=== PATIENT | female | born 1970 | race Caucasian/White ===

== ENCOUNTER 2020-01-24 10:51 | Outpatient (CLI) | payer OTHER ==
--- NOTE | 2020-01-24 14:43 | MMO ---
Bilateral MAMMO Bilat Screen [facility]. CLINICAL HISTORY: Patient is 49 years old and is seen for screening. The patient has the following family history of breast cancer: maternal aunt, malignant (generic). The patient has no personal history of cancer. VIEWS: The views performed were: bilateral craniocaudal with tomosynthesis and bilateral mediolateral oblique with tomosynthesis. This study has been interpreted with the assistance of computer-aided detection. MAMMOGRAM FINDINGS: There are scattered fibroglandular densities. Benign calcifications are noted bilaterally. There are no suspicious masses, suspicious calcifications, or new areas of architectural distortion. IMPRESSION: THERE IS NO MAMMOGRAPHIC EVIDENCE OF MALIGNANCY. A ROUTINE FOLLOW-UP MAMMOGRAM IN 1 YEAR IS RECOMMENDED. THE RESULTS OF THIS EXAM WERE SENT TO THE PATIENT. ACR BI-RADS Category 2 - Benign finding MAMMOGRAPHY NOTE: 1. A negative mammogram report should not delay a biopsy if a dominant of clinically suspicious mass is present. 2. Approximately 10% to 15% of breast cancers are not detected by mammography. 3. Adenosis and dense breasts may obscure an underlying neoplasm. Reported by: AIDE PETIT MD Electonically Signed: [id number]
== END 2020-01-24 10:52 | disposition home or self-care (01) ==
LOC: BICMAMMO 10:51
PROVIDERS: ATTEND Family Medicine
DX: Z12.31 Encounter for screening mammogram for malignant neoplasm of breast (principal); Z80.3 Family history of malignant neoplasm of breast
CPT/HCPCS: 77063; 77067

== ENCOUNTER 2021-02-11 21:01 | Inpatient (IN) | payer OTHER, SELFPAY ==
[2021-02-11] MEDS ORDERED: Cefepime 2 GM VIAL ONE (21:59)
[2021-02-11] MEDS ORDERED: Vancomycin HCl 1.5 GM in Sodium Chloride 0.9% 250 ML 300 ML IVPB SCH (22:00)
[2021-02-11 22:11] LABS: ALT (SGPT) 63 U/L (8-55); AST (SGOT) 200 U/L (5-34); Acetaminophen Less than 6.0 mcg/mL (10.0-30.0); Albumin 3.1 g/dL (3.5-5.0); Alcohol Less than 10 mg/dL (Less than 10); Alkaline Phosphatase 54 U/L (40-110); Anion Gap 21 mmol/L (10-20); BUN (Urea Nitrogen) 45 mg/dL (7.0-18.7); Bilirubin, Total 0.8 mg/dL (0.2-1.2); Calc. Creatinine Clearance 0 mL/min (70-130); Calcium 8.9 mg/dL (7.8-10.44); Carbon Dioxide 13 mmol/L (22-29); Chloride 108 mmol/L (98-107); Globulin 3.8 g/dL (2.4-3.5); Glucose 120 mg/dL (70-105); Potassium 4.1 mmol/L (3.5-5.1); Protein, Total 6.9 g/dL (6.0-8.3); Salicylate Less than 8.0 mg/dL (15.0-30.0); Sodium 138 mmol/L (136-145)
[2021-02-11 22:32] LABS: Analyzer IN Cardio ER; Base Excess -12.1 mEq/L (-2.0 to +3.0); Calcium, Ionized (venous) 1.11 mmol/L (1.16-1.32); Chloride (VBG) 109 mmol/L (98-106); Hemoglobin (Hb) 9.5 g/dL (11.7-16.0); Sodium 137.2 mmol/L (133-146); pH (venous) 7.26 (7.32-7.43)
[2021-02-11 22:35] LABS: CKMB 69.6 ng/mL (0-6.6)
[2021-02-11 22:40] LABS: #Basophils 0.1 thou/uL (0.0-0.2); #Eosinphils 0.3 thou/uL (0.0-0.7); #Lymphocytes 1.6 thou/uL (1.20-3.40); #Monocytes 0.7 thou/uL (0.11-0.59); #Neutrophils 3.7 thou/uL (1.40-6.50); %Basophils 1.1 % (0.0-1.0); %Lymphocytes 25.1 % (21.0-51.0); %Monocytes 10.3 % (0.0-10.0); %Neutrophils 58.5 % (42.0-75.0); Hemoglobin 8.8 g/dL (12.0-16.0); Mean Corpuscular HGB CONC 31.8 g/dL (32.0-36.0); Mean Corpuscular Hemoglobin 29.7 pg (27.0-31.0); Mean Corpuscular Volume 93.4 fL (78.0-98.0); Mean Platelet Volume 8.3 fL (7.4-10.4); Platelet Count 109 thou/uL (130-400); RBC Distribution Width 16.2 % (11.5-14.5); Red Blood Cell (RBC) Count 2.98 mill/uL (4.20-5.40); White Blood Cell (WBC) Count 6.3 thou/uL (4.8-10.8)
[2021-02-11 22:43] LABS: Actual Bicarbonate (HCO3v) 14 mEq/L (22-28)
[2021-02-12 00:51] LABS: Bacteria/HPF 2+ HPF (None Seen); Bilirubin Negative (Negative); Blood, Urine 2+ (Negative); Clarity Clear (Clear); Glucose, Urine (Dipstick) Normal (Negative); Ketone, Urine Negative (Negative); Leukocyte Negative Leu/uL (Negative); Nitrite Negative (Negative); Pregnancy Test - Urine (BHCG) Negative (Negative); Pregu Control Background? CLEAR/WHITE (CLR/WHITE); Pregu Control Bar Appear? YES (CONTROL BAR); Protein, Urine (Dipstick) Negative (Neg-Trace); RBC/HPF 0-3 HPF (0-3); Specific Gravity 1.007 (1.002-1.036); Specific Gravity, Urine 1.007 (1.002-1.036); Squamous Epithelial 0-3 HPF (0-3); Urobilinogen Normal mg/dL (Less than 2); WBC/HPF 0-3 HPF (0-3)
[2021-02-12 00:59] LABS: Amphetamine Detected (NotDetected); Barbiturates Screen Not Detected (NotDetected); Benzodiazepine Screen Not Detected (NotDetected); Cocaine Metabolite Screen Not Detected (NotDetected); Methadone Not Detected (NotDetected); Methamphetamine Detected (NotDetected); Opiate Screen Not Detected (NotDetected); Oxycodone Screen Not Detected (NotDetected); Phencyclidine (PCP) Not Detected (NotDetected); THC/Cannabinoid Screen Not Detected (NotDetected); Tricyclic Screen Not Detected (NotDetected)
[2021-02-12] MEDS ORDERED: Ondansetron PF 4 MG/2 ML Vial IVP PRN (01:23)
[2021-02-12 01:51] LABS: Analyzer IN Cardio ER; Base Excess -11.7 mEq/L (-2.0 to +3.0); Calcium, Ionized (venous) 1.02 mmol/L (1.16-1.32); Chloride (VBG) 108 mmol/L (98-106); Hemoglobin (Hb) 9.6 g/dL (11.7-16.0); Potassium (VBG) 4.89 mmol/L (3.70-5.30); Sodium 135.4 mmol/L (133-146); pH (venous) 7.32 (7.32-7.43)
[2021-02-12 01:56] LABS: Actual Bicarbonate (HCO3v) 13 mEq/L (22-28)
[2021-02-12] MEDS ORDERED: Dextrose 5% in Water 1,000 ML IV PRN (02:18)
[2021-02-12] MEDS ORDERED: Dextrose 50% Abboject 50 ML SYRINGE SLOW IVP PRN (02:18)
[2021-02-12] MEDS ORDERED: HumaLOG 300 UNITS/3 ML VIAL SC PRN (02:18)
[2021-02-12 02:23] LABS: Lactic Acid 2.4 mmol/L (0.5-2.2)
[2021-02-12 02:30] LABS: Troponin I 0.025 ng/mL (< 0.028)
[2021-02-12] MEDS: Sodium Bicarbonate 150 MEQ in Dextrose 5% in Water 1,000 ML IV SCH ×4 (03:49→20:16)
[2021-02-12 03:51] LABS: Magnesium 2.4 mg/dL (1.6-2.6)
[2021-02-12 04:05] VITALS: BMI 31.6
[2021-02-12 04:43] LABS: Band 1 % (5-11); Hemoglobin 9.4 g/dL (12.0-16.0); Hypochromia SLIGHT = 6-15 cells (100X) (0-5/hpf); Lymphocytes 20 % (21-51); MDiff Complete? YES; Mean Corpuscular Hemoglobin 31.3 pg (27.0-31.0); Mean Platelet Volume 8.7 fL (7.4-10.4); Neutrophil 79 % (42-75); Platelet Count 92 thou/uL (130-400); Platelet Morphology Comment Appears Decreased; RBC Distribution Width 16.2 % (11.5-14.5); Red Blood Cell (RBC) Count 3.01 mill/uL (4.20-5.40); White Blood Cell (WBC) Count 7.2 thou/uL (4.8-10.8)
[2021-02-12 04:49] LABS: ALT (SGPT) 64 U/L (8-55); AST (SGOT) 192 U/L (5-34); Alkaline Phosphatase 54 U/L (40-110); Anion Gap 20 mmol/L (10-20); BUN (Urea Nitrogen) 47 mg/dL (7.0-18.7); Bilirubin, Total 0.8 mg/dL (0.2-1.2); Calc. Creatinine Clearance 22 mL/min (70-130); Calcium 8.7 mg/dL (7.8-10.44); Carbon Dioxide 14 mmol/L (22-29); Chloride 108 mmol/L (98-107); Globulin 3.8 g/dL (2.4-3.5); Glucose 155 mg/dL (70-105); Magnesium 2.1 mg/dL (1.6-2.6); Potassium 4.3 mmol/L (3.5-5.1); Protein, Total 6.8 g/dL (6.0-8.3); Sodium 138 mmol/L (136-145)
[2021-02-12 04:59] LABS: Troponin I 0.029 ng/mL (< 0.028)
[2021-02-12] MEDS ORDERED: Midodrine HCl 5 MG TAB PO SCH (05:15)
[2021-02-12] MEDS: HumaLOG 300 UNITS/3 ML VIAL SC PRN ×2 (06:04→11:52)
[2021-02-12] MEDS: Rifaximin 550 MG TAB PO SCH ×2 (08:29→20:18)
[2021-02-12 11:29] LABS: Anion Gap 21 mmol/L (10-20); BUN (Urea Nitrogen) 46 mg/dL (7.0-18.7); Calc. Creatinine Clearance 22 mL/min (70-130); Calcium 8.2 mg/dL (7.8-10.44); Carbon Dioxide 15 mmol/L (22-29); Chloride 106 mmol/L (98-107); Glucose 230 mg/dL (70-105); Potassium 4.5 mmol/L (3.5-5.1); Sodium 137 mmol/L (136-145)
[2021-02-12 14:17] LABS: SARS-CoV-2 PCR by NAA Not Detected (NotDetected)
[2021-02-12] MEDS: Midodrine HCl 5 MG TAB PO SCH ×2 (14:19→20:19)
[2021-02-12] MEDS: Albumin 25% 25 GM/100 ML BOT IVPB SCH ×2 (16:01→21:45)
[2021-02-12] MEDS ORDERED: Nicotine 21 MG PATCH TD SCH (20:00)
[2021-02-12] MEDS: Acetaminophen 325 MG TAB PO PRN (20:17)
[2021-02-12 21:01] LABS: Creatinine, Urine 59.57 mg/dL (47-110)
[2021-02-13 04:29] LABS: CK (CPK) 1301 U/L (29-168); Phosphorus 4.9 mg/dL (2.3-4.7)
[2021-02-13 04:30] LABS: ALT (SGPT) 60 U/L (8-55); AST (SGOT) 129 U/L (5-34); Albumin 3.2 g/dL (3.5-5.0); Alkaline Phosphatase 49 U/L (40-110); Anion Gap 16 mmol/L (10-20); BUN (Urea Nitrogen) 40 mg/dL (7.0-18.7); Calc. Creatinine Clearance 30 mL/min (70-130); Calcium 8.4 mg/dL (7.8-10.44); Carbon Dioxide 22 mmol/L (22-29); Chloride 101 mmol/L (98-107); Globulin 3.2 g/dL (2.4-3.5); Glucose 134 mg/dL (70-105); Magnesium 2.1 mg/dL (1.6-2.6); Potassium 3.3 mmol/L (3.5-5.1); Protein, Total 6.4 g/dL (6.0-8.3); Sodium 136 mmol/L (136-145)
[2021-02-13 04:42] LABS: Anisocytosis SLIGHT = 6-15 cells (100X) (0-5/hpf); Band 11 % (5-11); Eosinophils 7 % (0-10); Hemoglobin 8.6 g/dL (12.0-16.0); Lymphocytes 16 % (21-51); MDiff Complete? YES; Mean Corpuscular HGB CONC 33.8 g/dL (32.0-36.0); Mean Corpuscular Hemoglobin 31.2 pg (27.0-31.0); Mean Corpuscular Volume 92.2 fL (78.0-98.0); Mean Platelet Volume 8.5 fL (7.4-10.4); Monocytes 4 % (0-10); Neutrophil 62 % (42-75); Platelet Count 82 thou/uL (130-400); Platelet Morphology Comment Appears Decreased; RBC Distribution Width 16.1 % (11.5-14.5); Red Blood Cell (RBC) Count 2.77 mill/uL (4.20-5.40); White Blood Cell (WBC) Count 4.7 thou/uL (4.8-10.8)
[2021-02-13] MEDS: Acetaminophen 325 MG TAB PO PRN ×2 (05:51→23:10)
[2021-02-13] MEDS ORDERED: Potassium Chloride 20 MEQ TAB PO SCH (08:30)
[2021-02-13] MEDS: Albumin 25% 25 GM/100 ML BOT IVPB SCH ×2 (09:20→14:52)
[2021-02-13] MEDS: Rifaximin 550 MG TAB PO SCH ×2 (09:20→23:05)
[2021-02-13] MEDS: Midodrine HCl 5 MG TAB PO SCH ×3 (09:20→23:05)
[2021-02-13] MEDS: HumaLOG 300 UNITS/3 ML VIAL SC PRN (17:05)
[2021-02-13] MEDS: Sodium Bicarbonate 150 MEQ in Dextrose 5% in Water 1,000 ML IV SCH (17:22)
[2021-02-13] MEDS ORDERED: Gabapentin 300 MG CAP PO SCH (23:00)
[2021-02-13] MEDS: Nicotine 21 MG PATCH TD SCH (23:02)
[2021-02-14 04:54] LABS: Hemoglobin 7.9 g/dL (12.0-16.0); Mean Corpuscular HGB CONC 32.5 g/dL (32.0-36.0); Mean Corpuscular Hemoglobin 30.5 pg (27.0-31.0); Mean Corpuscular Volume 93.7 fL (78.0-98.0); Mean Platelet Volume 8.9 fL (7.4-10.4); Platelet Count 80 thou/uL (130-400); RBC Distribution Width 16.4 % (11.5-14.5); Red Blood Cell (RBC) Count 2.59 mill/uL (4.20-5.40)
[2021-02-14 05:04] LABS: ALT (SGPT) 53 U/L (8-55); AST (SGOT) 88 U/L (5-34); Albumin 3.3 g/dL (3.5-5.0); Alkaline Phosphatase 49 U/L (40-110); Anion Gap 14 mmol/L (10-20); BUN (Urea Nitrogen) 26 mg/dL (7.0-18.7); Bilirubin, Total 0.9 mg/dL (0.2-1.2); Calc. Creatinine Clearance 64 mL/min (70-130); Calcium 8.5 mg/dL (7.8-10.44); Carbon Dioxide 25 mmol/L (22-29); Chloride 99 mmol/L (98-107); Globulin 3.1 g/dL (2.4-3.5); Glucose 240 mg/dL (70-105); Magnesium 2.1 mg/dL (1.6-2.6); Potassium 3.8 mmol/L (3.5-5.1); Protein, Total 6.4 g/dL (6.0-8.3); Sodium 134 mmol/L (136-145)
[2021-02-14 05:39] LABS: Band 2 % (5-11); Eosinophils 4 % (0-10); Lymphocytes 18 % (21-51); MDiff Complete? YES; Monocytes 12 % (0-10); Neutrophil 64 % (42-75); Platelet Morphology Comment Appears Decreased
[2021-02-14] MEDS: HumaLOG 300 UNITS/3 ML VIAL SC PRN ×3 (06:08→17:15)
[2021-02-14] MEDS ORDERED: Nicotine 21 MG PATCH TD SCH (09:00)
[2021-02-14] MEDS: Spironolactone 25 MG TAB PO SCH (09:08)
[2021-02-14] MEDS: Ferrous Sulfate 325 MG TAB PO SCH (09:08)
[2021-02-14] MEDS: Midodrine HCl 5 MG TAB PO SCH ×3 (09:09→21:13)
[2021-02-14] MEDS: Rifaximin 550 MG TAB PO SCH ×2 (09:09→21:13)
[2021-02-14] MEDS: Gabapentin 300 MG CAP PO SCH ×2 (09:10→21:13)
[2021-02-14] MEDS: Nadolol 40 MG TAB PO SCH (14:07)
[2021-02-14] MEDS: Acetaminophen 325 MG TAB PO PRN (21:22)
[2021-02-14] MEDS: Nicotine 21 MG PATCH TD SCH (23:51)
[2021-02-15] MEDS: Acetaminophen 325 MG TAB PO PRN ×2 (07:04→22:21)
[2021-02-15] MEDS: HumaLOG 300 UNITS/3 ML VIAL SC PRN ×3 (07:05→17:36)
[2021-02-15] MEDS: Rifaximin 550 MG TAB PO SCH ×2 (09:35→22:24)
[2021-02-15] MEDS: Spironolactone 25 MG TAB PO SCH (09:35)
[2021-02-15] MEDS: Gabapentin 300 MG CAP PO SCH ×2 (09:36→22:23)
[2021-02-15] MEDS: Ferrous Sulfate 325 MG TAB PO SCH (09:36)
[2021-02-15] MEDS: Empagliflozin 25 MG TAB PO SCH (09:41)
[2021-02-15] MEDS ORDERED: Nicotine 21 MG PATCH TD SCH (09:45)
[2021-02-15] MEDS ORDERED: HumuLIN 70/30 (300 UNITS/3 ML VIAL) SC SCH ×2 (11:30→18:00)
[2021-02-15 12:53] LABS: ALT (SGPT) 49 U/L (8-55); AST (SGOT) 66 U/L (5-34); Albumin 3.3 g/dL (3.5-5.0); Alkaline Phosphatase 55 U/L (40-110); Anion Gap 9 mmol/L (10-20); BUN (Urea Nitrogen) 21 mg/dL (7.0-18.7); Bilirubin, Total 0.8 mg/dL (0.2-1.2); Calc. Creatinine Clearance 87 mL/min (70-130); Calcium 8.8 mg/dL (7.8-10.44); Carbon Dioxide 27 mmol/L (22-29); Chloride 100 mmol/L (98-107); Globulin 3.2 g/dL (2.4-3.5); Glucose 291 mg/dL (70-105); Protein, Total 6.5 g/dL (6.0-8.3); Sodium 132 mmol/L (136-145)
[2021-02-15 13:08] LABS: #Eosinphils 0.3 thou/uL (0.0-0.7); #Monocytes 0.5 thou/uL (0.11-0.59); %Basophils 0.4 % (0.0-1.0); %Eosinophils 6.8 % (0.0-10.0); %Monocytes 10.7 % (0.0-10.0); %Neutrophils 61.1 % (42.0-75.0); Hemoglobin 7.9 g/dL (12.0-16.0); Mean Corpuscular HGB CONC 32.2 g/dL (32.0-36.0); Mean Corpuscular Hemoglobin 30.5 pg (27.0-31.0); Mean Corpuscular Volume 94.9 fL (78.0-98.0); Mean Platelet Volume 8.4 fL (7.4-10.4); Platelet Count 92 thou/uL (130-400); RBC Distribution Width 16.1 % (11.5-14.5); Red Blood Cell (RBC) Count 2.59 mill/uL (4.20-5.40); White Blood Cell (WBC) Count 4.9 thou/uL (4.8-10.8)
[2021-02-15] MEDS ORDERED: Torsemide 10 MG TAB PO SCH (18:30)
[2021-02-15] MEDS: Nicotine 21 MG PATCH TD SCH (22:24)
[2021-02-15] MEDS: Sodium Bicarbonate 150 MEQ in Dextrose 5% in Water 1,000 ML IV SCH (23:58)
[2021-02-16] MEDS: HumaLOG 300 UNITS/3 ML VIAL SC PRN ×2 (05:48→12:13)
[2021-02-16] MEDS ORDERED: Loratadine 10 MG TAB PO PRN (09:09)
[2021-02-16] MEDS ORDERED: Famotidine 20 MG TAB PO SCH (09:15)
[2021-02-16 09:17] LABS: #Eosinphils 0.3 thou/uL (0.0-0.7); #Lymphocytes 1.2 thou/uL (1.20-3.40); #Monocytes 0.5 thou/uL (0.11-0.59); #Neutrophils 2.8 thou/uL (1.40-6.50); %Basophils 0.9 % (0.0-1.0); %Eosinophils 6.9 % (0.0-10.0); %Lymphocytes 24.7 % (21.0-51.0); %Monocytes 10.1 % (0.0-10.0); %Neutrophils 57.4 % (42.0-75.0); Hemoglobin 8.2 g/dL (12.0-16.0); Mean Corpuscular HGB CONC 32.2 g/dL (32.0-36.0); Mean Corpuscular Hemoglobin 30.3 pg (27.0-31.0); Mean Corpuscular Volume 94.3 fL (78.0-98.0); Mean Platelet Volume 8.1 fL (7.4-10.4); Platelet Count 96 thou/uL (130-400); RBC Distribution Width 16.3 % (11.5-14.5); White Blood Cell (WBC) Count 4.9 thou/uL (4.8-10.8)
[2021-02-16] MEDS: Ferrous Sulfate 325 MG TAB PO SCH (09:30)
[2021-02-16] MEDS: Torsemide 10 MG TAB PO SCH (09:30)
[2021-02-16] MEDS: Spironolactone 25 MG TAB PO SCH (09:31)
[2021-02-16] MEDS: Empagliflozin 25 MG TAB PO SCH (09:31)
[2021-02-16] MEDS: Rifaximin 550 MG TAB PO SCH ×2 (09:31→20:06)
[2021-02-16 09:35] LABS: ALT (SGPT) 45 U/L (8-55); AST (SGOT) 63 U/L (5-34); Albumin 3.3 g/dL (3.5-5.0); Alkaline Phosphatase 52 U/L (40-110); Anion Gap 11 mmol/L (10-20); BUN (Urea Nitrogen) 20 mg/dL (7.0-18.7); Bilirubin, Total 0.9 mg/dL (0.2-1.2); Calc. Creatinine Clearance 88 mL/min (70-130); Calcium 9.1 mg/dL (7.8-10.44); Carbon Dioxide 25 mmol/L (22-29); Chloride 102 mmol/L (98-107); Globulin 3.4 g/dL (2.4-3.5); Glucose 209 mg/dL (70-105); Potassium 4.1 mmol/L (3.5-5.1); Protein, Total 6.7 g/dL (6.0-8.3); Sodium 134 mmol/L (136-145)
[2021-02-16] MEDS: Nadolol 40 MG TAB PO SCH (09:43)
[2021-02-16] MEDS: Gabapentin 300 MG CAP PO SCH ×3 (10:00→20:06)
[2021-02-16] MEDS: HumuLIN 70/30 (300 UNITS/3 ML VIAL) SC SCH (17:21)
[2021-02-16] MEDS: Famotidine 20 MG TAB PO SCH (20:06)
[2021-02-16] MEDS: Nicotine 21 MG PATCH TD SCH (22:59)
[2021-02-17 09:02] LABS: ALT (SGPT) 40 U/L (8-55); AST (SGOT) 49 U/L (5-34); Albumin 3.2 g/dL (3.5-5.0); Alkaline Phosphatase 52 U/L (40-110); Anion Gap 12 mmol/L (10-20); BUN (Urea Nitrogen) 23 mg/dL (7.0-18.7); Bilirubin, Total 0.8 mg/dL (0.2-1.2); Calc. Creatinine Clearance 80 mL/min (70-130); Calcium 8.8 mg/dL (7.8-10.44); Carbon Dioxide 24 mmol/L (22-29); Chloride 103 mmol/L (98-107); Globulin 3.2 g/dL (2.4-3.5); Glucose 191 mg/dL (70-105); Potassium 4.2 mmol/L (3.5-5.1); Protein, Total 6.4 g/dL (6.0-8.3); Sodium 135 mmol/L (136-145)
[2021-02-17] MEDS: Gabapentin 300 MG CAP PO SCH ×3 (09:51→20:24)
[2021-02-17] MEDS: Empagliflozin 25 MG TAB PO SCH (09:51)
[2021-02-17] MEDS: Spironolactone 25 MG TAB PO SCH (09:53)
[2021-02-17] MEDS: Ferrous Sulfate 325 MG TAB PO SCH (09:54)
[2021-02-17] MEDS: Rifaximin 550 MG TAB PO SCH ×2 (09:54→20:24)
[2021-02-17] MEDS: Torsemide 10 MG TAB PO SCH (09:54)
[2021-02-17] MEDS: Famotidine 20 MG TAB PO SCH ×2 (09:54→20:24)
[2021-02-17] MEDS: Nadolol 40 MG TAB PO SCH (09:55)
[2021-02-17] MEDS: HumuLIN 70/30 (300 UNITS/3 ML VIAL) SC SCH ×2 (09:55→17:08)
[2021-02-17] MEDS: HumaLOG 300 UNITS/3 ML VIAL SC PRN ×2 (13:05→17:09)
[2021-02-17] MEDS: Nicotine 21 MG PATCH TD SCH (23:45)
[2021-02-18] MEDS: Acetaminophen 325 MG TAB PO PRN ×2 (04:34→12:13)
[2021-02-18] MEDS: HumaLOG 300 UNITS/3 ML VIAL SC PRN ×2 (06:13→12:30)
[2021-02-18] MEDS: Ferrous Sulfate 325 MG TAB PO SCH (07:35)
[2021-02-18] MEDS ORDERED: Spironolactone 25 MG TAB PO SCH (09:15)
[2021-02-18] MEDS: Spironolactone 25 MG TAB PO SCH ×2 (09:55→10:08)
[2021-02-18] MEDS: Rifaximin 550 MG TAB PO SCH (09:55)
[2021-02-18] MEDS: Gabapentin 300 MG CAP PO SCH (09:56)
[2021-02-18] MEDS: Nadolol 40 MG TAB PO SCH (09:57)
[2021-02-18] MEDS: Torsemide 10 MG TAB PO SCH (09:57)
[2021-02-18] MEDS: Empagliflozin 25 MG TAB PO SCH (09:57)
[2021-02-18] MEDS: Famotidine 20 MG TAB PO SCH (09:59)
[2021-02-18] MEDS: HumuLIN 70/30 (300 UNITS/3 ML VIAL) SC SCH (10:01)
[2021-02-18 12:21] VITALS: BP 98/52; TEMP 98.4
[2021-02-18 14:06] LABS: Anion Gap 16 mmol/L (10-20); BUN (Urea Nitrogen) 28 mg/dL (7.0-18.7); Calc. Creatinine Clearance 67 mL/min (70-130); Calcium 9.5 mg/dL (7.8-10.44); Carbon Dioxide 18 mmol/L (22-29); Chloride 103 mmol/L (98-107); Glucose 322 mg/dL (70-105); Potassium 4.7 mmol/L (3.5-5.1); Sodium 132 mmol/L (136-145)
== END 2021-02-18 14:05 | disposition home or self-care (01) | DRG 682 ==
LOC: ERS 21:01 → IMCU/EMU 02-12 00:44 → 2NO 02-13 19:07
PROVIDERS: ADMIT Internal Medicine; ATTEND Hospitalist
DX: N17.9 Acute kidney failure, unspecified (principal); G92 Toxic encephalopathy; R57.8 Other shock; J96.01 Acute respiratory failure with hypoxia; M62.82 Rhabdomyolysis; E87.2 Acidosis; F19.10 Other psychoactive substance abuse, uncomplicated; E11.65 Type 2 diabetes mellitus with hyperglycemia; K74.60 Unspecified cirrhosis of liver; B18.2 Chronic viral hepatitis C; N18.2 Chronic kidney disease, stage 2 (mild); I12.9 Hypertensive chronic kidney disease with stage 1 through stage 4 chronic kidney disease, or unspecified chronic kidney disease; E11.22 Type 2 diabetes mellitus with diabetic chronic kidney disease; D63.1 Anemia in chronic kidney disease; F17.210 Nicotine dependence, cigarettes, uncomplicated; E66.01 Morbid (severe) obesity due to excess calories; Z88.2 Allergy status to sulfonamides; Z88.8 Allergy status to other drugs, medicaments and biological substances; Z79.84 Long term (current) use of oral hypoglycemic drugs; Z68.32 Body mass index [BMI] 32.0-32.9, adult
CPT/HCPCS: 36415; 36416; 70450; 71045; 80048; 80053; 80306; 80307; 81003; 81015; 81025; 82010; 82140; 82550; 82553; 82570; 82805; 83605; 83735; 83930; 84100; 84156; 84300; 84443; 84484; 84540; 85007; 85025; 85027; 87040; 93005; J0692; J1815; J3370; J7050; J7070; P9047; U0003; U0005

== ENCOUNTER 2022-06-15 21:53 | Inpatient (IN) | payer OTHER, SELFPAY ==
[2022-06-15] MEDS ORDERED: Gabapentin 300 MG CAP PO SCH (23:59)
[2022-06-16 00:14] LABS: #Eosinphils 0.2 thou/uL (0.0-0.7); #Lymphocytes 1.8 thou/uL (1.20-3.40); #Monocytes 0.5 thou/uL (0.11-0.59); #Neutrophils 5.9 thou/uL (1.40-6.50); %Basophils 0.4 % (0.0-1.0); %Eosinophils 2.7 % (0.0-10.0); %Lymphocytes 21.4 % (21.0-51.0); %Monocytes 6.2 % (0.0-10.0); %Neutrophils 69.3 % (42.0-75.0); Hemoglobin 11.1 g/dL (12.0-16.0); Mean Corpuscular HGB CONC 34.2 g/dL (32.0-36.0); Mean Corpuscular Hemoglobin 32.1 pg (27.0-31.0); Mean Corpuscular Volume 93.9 fl (78.0-98.0); Mean Platelet Volume 8.9 fL (7.4-10.4); Platelet Count 95 10x3/uL (130-400); RBC Distribution Width 12.8 % (11.5-14.5); Red Blood Cell (RBC) Count 3.46 mill/uL (4.20-5.40); White Blood Cell (WBC) Count 8.5 10x3/uL (4.8-10.8)
[2022-06-16 00:25] LABS: ALT (SGPT) 20 U/L (8-55); AST (SGOT) 24 U/L (5-34); Albumin 3.5 g/dL (3.5-5.0); Alkaline Phosphatase 97 U/L (40-110); Anion Gap 13 mmol/L (10-20); BUN (Urea Nitrogen) 16 mg/dL (9.8-20.1); Bilirubin, Total 0.6 mg/dL (0.2-1.2); Calc. Creatinine Clearance 0 mL/min (70-130); Calcium 9.2 mg/dL (7.8-10.44); Carbon Dioxide 19 mmol/L (22-29); Chloride 108 mmol/L (98-107); Estimated GFR 48; Globulin 3.8 g/dL (2.4-3.5); Glucose 167 mg/dL (70-105); Lipase 40 U/L (8-78); Potassium 4.2 mmol/L (3.5-5.1); Protein, Total 7.3 g/dL (6.0-8.3); Sodium 136 mmol/L (136-145)
[2022-06-16] MEDS ORDERED: HumaLOG 300 UNITS/3 ML VIAL SC PRN (02:24)
[2022-06-16] MEDS ORDERED: Dextrose 50% Abboject 50 ML SYRINGE SLOW IVP PRN (02:24)
[2022-06-16] MEDS ORDERED: hydrALAZINE 20 MG/ML VIAL SLOW IVP PRN (02:24)
[2022-06-16] MEDS ORDERED: Dextrose 5% in Water 1,000 ML IV PRN (02:24)
[2022-06-16] MEDS ORDERED: Acetaminophen 500 MG TAB PO SCH (02:30)
[2022-06-16 03:57] LABS: #Basophils 0.1 thou/uL (0.0-0.2); #Eosinphils 0.2 thou/uL (0.0-0.7); #Monocytes 0.7 thou/uL (0.11-0.59); #Neutrophils 6.4 thou/uL (1.40-6.50); %Basophils 0.9 % (0.0-1.0); %Eosinophils 2.3 % (0.0-10.0); %Lymphocytes 21.4 % (21.0-51.0); %Monocytes 7.4 % (0.0-10.0); Hemoglobin 11.1 g/dL (12.0-16.0); Mean Corpuscular HGB CONC 34.4 g/dL (32.0-36.0); Mean Corpuscular Hemoglobin 32.1 pg (27.0-31.0); Mean Corpuscular Volume 93.2 fl (78.0-98.0); Mean Platelet Volume 8.4 fL (7.4-10.4); Platelet Count 140 10x3/uL (130-400); RBC Distribution Width 12.7 % (11.5-14.5); Red Blood Cell (RBC) Count 3.47 mill/uL (4.20-5.40); White Blood Cell (WBC) Count 9.5 10x3/uL (4.8-10.8)
[2022-06-16 04:23] LABS: Anion Gap 14 mmol/L (10-20); BUN (Urea Nitrogen) 15 mg/dL (9.8-20.1); Calc. Creatinine Clearance 0 mL/min (70-130); Calcium 9.2 mg/dL (7.8-10.44); Carbon Dioxide 19 mmol/L (22-29); Chloride 107 mmol/L (98-107); Estimated GFR 53; Glucose 150 mg/dL (70-105); Potassium 4.2 mmol/L (3.5-5.1); Sodium 136 mmol/L (136-145)
[2022-06-16] MEDS ORDERED: Acetaminophen 500 MG TAB ONE (05:15)
[2022-06-16 06:24] VITALS: TEMP 98
[2022-06-16 07:03] LABS: Troponin I Less than 0.010 ng/mL (< 0.028)
[2022-06-16] MEDS ORDERED: Furosemide 40 MG TAB PO SCH (07:30)
[2022-06-16] MEDS ORDERED: Ferrous Sulfate 325 MG TAB PO SCH (08:00)
[2022-06-16] MEDS ORDERED: Spironolactone 25 MG TAB PO SCH (08:00)
[2022-06-16] MEDS ORDERED: Non-Formulary Item 1 EACH (Multivit With Calcium,Iron,Min [Multiple Vitamins For Women] 1 PO SCH (09:00)
[2022-06-16] MEDS ORDERED: tiZANidine HCl 4 MG TAB PO SCH (09:00)
[2022-06-16] MEDS ORDERED: Multivitamin W/ Minerals 1 TAB PO SCH (09:00)
[2022-06-16] MEDS ORDERED: Amlodipine 10 MG TAB PO SCH (09:00)
[2022-06-16] MEDS ORDERED: Nadolol 40 MG TAB PO SCH (09:00)
[2022-06-16] MEDS ORDERED: Ergocalciferol 1.25 MG(50,000 UNITS) CAP PO SCH (09:00)
[2022-06-16] MEDS ORDERED: Heparin 5,000 UNITS/ML VIAL SC SCH (09:00)
[2022-06-16] MEDS ORDERED: Non-Formulary Item 1 EACH (Dapagliflozin Propanediol [Farxiga] 10 MG Tablet) PO SCH (09:00)
[2022-06-16] MEDS ORDERED: Empagliflozin 25 MG TAB PO SCH (09:00)
[2022-06-16] MEDS ORDERED: Gabapentin 300 MG CAP PO SCH (09:00)
[2022-06-16] MEDS ORDERED: Furosemide 40 MG TAB ONE (09:42)
[2022-06-16 09:54] VITALS: BP 153/60
== END 2022-06-16 10:00 | disposition home or self-care (01) | DRG 305 ==
LOC: ERS 21:53 → ERHOLD 06-16 02:24
PROVIDERS: ADMIT Family Medicine; ATTEND Family Medicine
DX: I16.1 Hypertensive emergency (principal); N17.9 Acute kidney failure, unspecified; I10 Essential (primary) hypertension; K74.60 Unspecified cirrhosis of liver; E11.9 Type 2 diabetes mellitus without complications; K58.9 Irritable bowel syndrome, unspecified; F41.9 Anxiety disorder, unspecified; F31.9 Bipolar disorder, unspecified; F43.10 Post-traumatic stress disorder, unspecified; Z88.1 Allergy status to other antibiotic agents; Z88.2 Allergy status to sulfonamides; Z79.899 Other long term (current) drug therapy; Z91.14 Patient's other noncompliance with medication regimen; Z91.118 Patient's noncompliance with dietary regimen for other reason
CPT/HCPCS: 36415; 36416; 70450; 71045; 80048; 80053; 83690; 83880; 84484; 85025; 93005

== ENCOUNTER 2022-08-23 01:57 | Observation (INO) | payer OTHER, SELFPAY ==
[2022-08-23] MEDS ORDERED: Morphine 4 MG/ML VIAL ONE (02:41)
[2022-08-23] MEDS ORDERED: Midazolam HCl 2 mg/2 ml Vial ONE (02:42)
[2022-08-23] MEDS ORDERED: Bupivacaine/Epinephrine 0.25% 30 ML VIAL ONE (03:28)
[2022-08-23] MEDS ORDERED: traMADol HCl 50 MG TAB PO PRN (03:30)
[2022-08-23 03:40] LABS: Bilirubin Negative (Negative); Blood, Urine 3+ (Negative); Clarity Turbid (Clear); Glucose, Urine (Dipstick) >=1000 mg/dL (Negative); Ketone, Urine Negative (Negative); Leukocyte Negative Leu/uL (Negative); Nitrite Negative (Negative); Protein, Urine (Dipstick) 70 mg/dL (Neg-Trace); RBC/HPF Greater than 50 HPF (0-3); Specific Gravity, Urine 1.018 (1.002-1.036); Squamous Epithelial 0-3 HPF (0-3); Urobilinogen Normal mg/dL (Less than 2); WBC/HPF Greater than 50 HPF (0-3)
[2022-08-23 03:45] LABS: Bacteria/HPF Rare-Few HPF (None Seen)
[2022-08-23] MEDS ORDERED: Fentanyl 250 MCG/5 ML VIAL ONE (03:57)
[2022-08-23] MEDS ORDERED: Phenylephrine 10 MG/ML VIAL ONE (03:57)
[2022-08-23 04:13] LABS: #Basophils 0.1 thou/uL (0.0-0.2); #Eosinphils 0.3 thou/uL (0.0-0.7); #Monocytes 0.7 thou/uL (0.11-0.59); %Basophils 0.5 % (0.0-1.0); %Eosinophils 2.3 % (0.0-10.0); %Lymphocytes 17.9 % (21.0-51.0); %Monocytes 5.9 % (0.0-10.0); %Neutrophils 73.3 % (42.0-75.0); Hemoglobin 10.9 g/dL (12.0-16.0); Mean Corpuscular HGB CONC 33.1 g/dL (32.0-36.0); Mean Corpuscular Hemoglobin 29.9 pg (27.0-31.0); Mean Corpuscular Volume 90.3 fl (78.0-98.0); Platelet Count 173 10x3/uL (130-400); RBC Distribution Width 13.5 % (11.5-14.5); Red Blood Cell (RBC) Count 3.66 mill/uL (4.20-5.40); White Blood Cell (WBC) Count 10.9 10x3/uL (4.8-10.8)
[2022-08-23] MEDS ORDERED: Mannitol 12.5 GM/50 ML ONE (04:18)
[2022-08-23 04:21] LABS: INR-International Normal Ratio 1.1; PTT 26.7 sec (22.9-36.1); Prothrombin Time 14.4 sec (12.0-14.7)
[2022-08-23] MEDS ORDERED: Lidocaine 1% PF 5 ML VIAL ONE (04:23)
[2022-08-23] MEDS ORDERED: Dexamethasone 20 MG/5 ML VIAL ONE (04:23)
[2022-08-23] MEDS ORDERED: PROPOFOL 200 MG/20 ML VIAL ONE (04:23)
[2022-08-23] MEDS ORDERED: Ondansetron PF 4 MG/2 ML Vial ONE (04:23)
[2022-08-23] MEDS ORDERED: Rocuronium Bromide 10 MG/ML (10ML VIAL) ONE (04:23)
[2022-08-23 04:24] LABS: BHCG - Serum Negative (NEGATIVE); Pregs Control Background? CLEAR/WHITE (CLR/WHITE); Pregs Control Bar Appear? YES (CONTROL BAR)
[2022-08-23 04:35] LABS: Anion Gap 14 mmol/L (10-20); BUN (Urea Nitrogen) 16 mg/dL (9.8-20.1); Calc. Creatinine Clearance 0 mL/min (70-130); Calcium 9.2 mg/dL (7.8-10.44); Carbon Dioxide 18 mmol/L (22-29); Chloride 108 mmol/L (98-107); Estimated GFR 57; Glucose 282 mg/dL (70-105); Magnesium 1.5 mg/dL (1.6-2.6); Phosphorus 3.8 mg/dL (2.3-4.7); Potassium 4.6 mmol/L (3.5-5.1); Sodium 135 mmol/L (136-145)
[2022-08-23 04:36] LABS: ALT (SGPT) 26 U/L (8-55); AST (SGOT) 28 U/L (5-34); Albumin 3.3 g/dL (3.5-5.0); Alkaline Phosphatase 88 U/L (40-110); Bilirubin, Direct 0.2 mg/dL (0.1-0.3); Bilirubin, Total 0.6 mg/dL (0.2-1.2); Protein, Total 6.8 g/dL (6.0-8.3)
[2022-08-23] MEDS ORDERED: SUGAMMADEX SODIUM 200 MG/2 ML VIAL ONE (05:19)
[2022-08-23] MEDS ORDERED: Ipratropium/Albuterol 3 ML NEB ONE (05:42)
[2022-08-23] MEDS ORDERED: Acetaminophen 500 MG TAB PO SCH (06:00)
[2022-08-23] MEDS ORDERED: traMADol HCl 50 MG TAB PO SCH (06:00)
[2022-08-23] MEDS ORDERED: Morphine 2 MG/ML VIAL SLOW IVP PRN (06:07)
[2022-08-23] MEDS ORDERED: PACU-Morphine 4MG/ML VIAL SLOW IVP PRN (06:09)
[2022-08-23] MEDS ORDERED: HYDROmorphone 2 MG/ML VIAL SLOW IVP PRN (06:09)
[2022-08-23] MEDS ORDERED: Promethazine HCl 25 MG/ML VIAL IM PRN (06:09)
[2022-08-23] MEDS ORDERED: Ondansetron HCl/PF 4 MG/2 ML Vial IVP PRN (06:09)
[2022-08-23] MEDS ORDERED: TETANUS, DIPHTHERIA TOX,ADULT (TDVAX) 0.5 ML VIAL IM ONE (06:11)
[2022-08-23] MEDS ORDERED: Dextrose 50% Abboject 50 ML SYRINGE SLOW IVP PRN ×2 (06:11→07:40)
[2022-08-23] MEDS ORDERED: Dextrose 5% in Water 1,000 ML IV PRN ×2 (06:11→07:40)
[2022-08-23] MEDS ORDERED: fentaNYL 50 mcg/mL 1 mL Vial ONE (06:13)
[2022-08-23] MEDS ORDERED: HYDROmorphone 0.5 MG/0.5 ML SYRINGE ONE ×3 (06:28→08:57)
[2022-08-23] MEDS ORDERED: Ipratropium/Albuterol 3 ML NEB NEB SCH (06:30)
[2022-08-23] MEDS ORDERED: hydrALAZINE 20 MG/ML VIAL ONE (06:47)
[2022-08-23] MEDS ORDERED: BISACODYL 5 MG PO PRN (07:38)
[2022-08-23] MEDS ORDERED: HumaLOG 300 UNITS/3 ML VIAL ONE (07:46)
[2022-08-23] MEDS ORDERED: Bisacodyl 5 MG TAB PO PRN (08:03)
[2022-08-23] MEDS: Spironolactone 25 MG TAB PO SCH (08:30)
[2022-08-23 09:07] LABS: Pregnancy Test - Urine (BHCG) Negative (Negative); Pregu Control Bar Appear? YES (CONTROL BAR); Specific Gravity 1.018 (1.002-1.036)
[2022-08-23 09:08] LABS: Pregu Control Background? CLEAR/WHITE (CLR/WHITE)
[2022-08-23] MEDS: Lisinopril 20 MG TAB PO SCH (09:22)
[2022-08-23] MEDS: Senokot S 8.6-50 MG TAB PO SCH ×2 (09:26→20:55)
[2022-08-23] MEDS: Nadolol 40 MG TAB PO SCH ×2 (09:26→12:15)
[2022-08-23] MEDS: Polyethylene Glycol 3350 17 GM Packet PO SCH (09:26)
[2022-08-23] MEDS: Acetaminophen/Codeine 30-300mg Tablet PO SCH ×2 (12:08→17:35)
[2022-08-23] MEDS: Clindamycin 150 MG CAP PO SCH ×2 (12:08→17:34)
[2022-08-23] MEDS: HumaLOG 300 UNITS/3 ML VIAL SC PRN ×3 (12:16→21:09)
[2022-08-23] MEDS ORDERED: Ipratropium/Albuterol Sulfate 4 GM AER IH SCH (12:30)
[2022-08-23] MEDS ORDERED: Insulin Regular 300 UNITS/3 ML VIAL SC SCH (13:45)
[2022-08-23] MEDS: Dicyclomine 20 MG TAB PO SCH ×2 (15:37→20:52)
[2022-08-23] MEDS: Acetaminophen/Codeine 30-300mg Tablet PO PRN (16:18)
[2022-08-23] MEDS: Albuterol 200 PUFF (6.7GM INHALER) INH PRN (18:47)
[2022-08-23] MEDS: Ipratropium 200 Puff Oral Inhaler INH SCH (18:48)
[2022-08-23] MEDS: Albuterol HFA (OR) 200 PUFF INH INH SCH (18:50)
[2022-08-23] MEDS: Gabapentin 300 MG CAP PO SCH (20:52)
[2022-08-23] MEDS ORDERED: QUEtiapine 100 MG TAB PO SCH (21:00)
[2022-08-23] MEDS ORDERED: Insulin Glargine 30 UNITS/0.3 ML VIAL SC SCH (21:00)
[2022-08-23] MEDS: Insulin Glargine 30 UNITS/0.3 ML VIAL SC SCH (21:00)
[2022-08-23] MEDS: tiZANidine HCl 4 MG TAB PO SCH (21:08)
[2022-08-24] MEDS: Clindamycin 150 MG CAP PO SCH ×3 (00:13→11:22)
[2022-08-24] MEDS: Acetaminophen/Codeine 30-300mg Tablet PO SCH ×3 (00:14→11:22)
[2022-08-24] MEDS: Acetaminophen/Codeine 30-300mg Tablet PO PRN (00:14)
[2022-08-24] MEDS: HumaLOG 300 UNITS/3 ML VIAL SC PRN ×2 (06:11→11:23)
[2022-08-24] MEDS: Albuterol 200 PUFF (6.7GM INHALER) INH PRN (06:33)
[2022-08-24] MEDS: Ipratropium 200 Puff Oral Inhaler INH SCH ×2 (06:34→12:01)
[2022-08-24] MEDS: Albuterol HFA (OR) 200 PUFF INH INH SCH ×2 (06:35→12:00)
[2022-08-24 06:48] LABS: Hemoglobin 9.9 g/dL (12.0-16.0); Mean Corpuscular HGB CONC 32.6 g/dL (32.0-36.0); Mean Corpuscular Hemoglobin 30.1 pg (27.0-31.0); Mean Corpuscular Volume 92.3 fl (78.0-98.0); Mean Platelet Volume 8.1 fL (7.4-10.4); Platelet Count 151 10x3/uL (130-400); RBC Distribution Width 13.5 % (11.5-14.5); Red Blood Cell (RBC) Count 3.28 mill/uL (4.20-5.40); White Blood Cell (WBC) Count 10.4 10x3/uL (4.8-10.8)
[2022-08-24 06:58] LABS: Anion Gap 9 mmol/L (10-20); BUN (Urea Nitrogen) 19 mg/dL (9.8-20.1); Calc. Creatinine Clearance 80 mL/min (70-130); Calcium 8.3 mg/dL (7.8-10.44); Carbon Dioxide 21 mmol/L (22-29); Chloride 106 mmol/L (98-107); Estimated GFR 49; Glucose 223 mg/dL (70-105); Magnesium 1.5 mg/dL (1.6-2.6); Phosphorus 3.6 mg/dL (2.3-4.7); Sodium 132 mmol/L (136-145)
[2022-08-24] MEDS ORDERED: Magnesium 2 GM/50 ML(in water) 4 GM in Premix Bag 1 BAG IVPB SCH (08:00)
[2022-08-24 08:32] LABS: Eosinophils 3 % (0-10); Lymphocytes 20 % (21-51); MDiff Complete? YES; Monocytes 8 % (0-10); Neutrophil 69 % (42-75); Ovalocytes SLIGHT = 2-5 cells (100X) (0-1/hpf); Platelet Morphology Comment Appears Adequate; Polychromasia SLIGHT = 2-3 cells (100X) (0-2/hpf)
[2022-08-24 08:53] VITALS: TEMP 97.7
[2022-08-24] MEDS: Senokot S 8.6-50 MG TAB PO SCH (08:54)
[2022-08-24] MEDS: Dicyclomine 20 MG TAB PO SCH (08:55)
[2022-08-24] MEDS: Lisinopril 20 MG TAB PO SCH (08:56)
[2022-08-24] MEDS: Gabapentin 300 MG CAP PO SCH (08:56)
[2022-08-24] MEDS: tiZANidine HCl 4 MG TAB PO SCH (08:56)
[2022-08-24] MEDS: Spironolactone 25 MG TAB PO SCH (08:57)
[2022-08-24] MEDS: Insulin Glargine 30 UNITS/0.3 ML VIAL SC SCH (08:57)
[2022-08-24] MEDS: Polyethylene Glycol 3350 17 GM Packet PO SCH (08:58)
[2022-08-24] MEDS: Nadolol 40 MG TAB PO SCH (08:59)
[2022-08-24] MEDS ORDERED: Docusate 100 MG CAP PO SCH (09:00)
[2022-08-24] MEDS ORDERED: Saccharomyces boulardii 250 MG CAP PO SCH (09:00)
[2022-08-24] MEDS ORDERED: Magnesium Sulfate In Water 4 GM in Premix Bag 1 BAG IVPB SCH (09:00)
[2022-08-24 13:20] VITALS: BP 122/73
== END 2022-08-24 13:14 | disposition home or self-care (01) ==
LOC: ERS 01:57 → SDC/OP 04:20 → SURG B 10:41
PROVIDERS: ADMIT Surgery; ATTEND Surgery
PROC: 0WUF0JZ Supplement Abdominal Wall with Synthetic Substitute, Open Approach (ICD-10-PCS; principal; 2022-08-23)
DX: K42.0 Umbilical hernia with obstruction, without gangrene (principal); I12.9 Hypertensive chronic kidney disease with stage 1 through stage 4 chronic kidney disease, or unspecified chronic kidney disease; E10.22 Type 1 diabetes mellitus with diabetic chronic kidney disease; N18.9 Chronic kidney disease, unspecified; E10.40 Type 1 diabetes mellitus with diabetic neuropathy, unspecified; F10.21 Alcohol dependence, in remission; F15.11 Other stimulant abuse, in remission; K74.60 Unspecified cirrhosis of liver; K58.9 Irritable bowel syndrome, unspecified; J45.909 Unspecified asthma, uncomplicated; E66.01 Morbid (severe) obesity due to excess calories; Z68.38 Body mass index [BMI] 38.0-38.9, adult; Z87.891 Personal history of nicotine dependence; Z79.84 Long term (current) use of oral hypoglycemic drugs; Z79.899 Other long term (current) drug therapy; Z88.1 Allergy status to other antibiotic agents; Z88.2 Allergy status to sulfonamides
CPT/HCPCS: 36415; 36416; 80048; 80076; 81003; 81015; 81025; 83735; 84100; 84703; 85025; 85610; 85730; 86850; 86900; 86901; 88302; 96365; 96366; 96372; 96374; 96375; C1781; G0378; J0360; J1100; J1170; J1650; J1815; J2150; J2250; J2270; J2370; J2405; J2704; J3010; J3475; J7620

== ENCOUNTER 2022-12-30 14:03 | Outpatient (CLI) | payer OTHER ==
[~2022-12-30 14:03] MED LIST: Iopamidol 370 76% 100 ML VIAL ONE
== END 2022-12-30 14:04 | disposition home or self-care (01) ==
LOC: BICCT 14:03
PROVIDERS: ATTEND Otolaryngology Plastic Surgery within the Head & Neck
DX: J37.1 Chronic laryngotracheitis (principal); R49.0 Dysphonia; E04.2 Nontoxic multinodular goiter
CPT/HCPCS: 70491; 82565

== ENCOUNTER 2023-01-24 13:21 | Inpatient (IN) | payer OTHER ==
[2023-01-24 16:21] VITALS: BMI 44.1
[2023-01-24] MEDS: Sodium Chloride 0.9% 1,000 ML IV SCH ×2 (16:29→22:13)
[2023-01-24 16:54] LABS: Magnesium 2.1 mg/dL (1.6-2.6)
[2023-01-24 16:57] LABS: Anion Gap 13 mmol/L (10-20); BUN (Urea Nitrogen) 33 mg/dL (9.8-20.1); Calc. Creatinine Clearance 67 mL/min (70-130); Calcium 8.8 mg/dL (7.8-10.44); Carbon Dioxide 17 mmol/L (22-29); Chloride 111 mmol/L (98-107); Estimated GFR 33; Glucose 130 mg/dL (70-105); Potassium 5.4 mmol/L (3.5-5.1); Sodium 136 mmol/L (136-145)
[2023-01-24 16:59] LABS: Troponin I Less than 0.010 ng/mL (< 0.028)
[2023-01-24] MEDS ORDERED: Dextrose 5% in Water 1,000 ML IV PRN (17:01)
[2023-01-24] MEDS ORDERED: Insulin Regular 300 UNITS/3 ML VIAL SC PRN (17:01)
[2023-01-24] MEDS ORDERED: Dextrose 50% Abboject 50 ML SYRINGE SLOW IVP PRN (17:01)
[2023-01-24] MEDS ORDERED: Glucagon 1 MG/ML KIT IM PRN (17:01)
[2023-01-24] MEDS ORDERED: Nitroglycerin 0.4 MG TAB (25 Tab Bottle) SL PRN (17:03)
[2023-01-24] MEDS ORDERED: Ondansetron ODT 4 MG TAB PO PRN (17:05)
[2023-01-24] MEDS ORDERED: Ondansetron PF 4 MG/2 ML Vial IVP PRN (17:05)
[2023-01-24] MEDS ORDERED: Calcium Carbonate 500 MG ChewTAB PO PRN (17:05)
[2023-01-24] MEDS ORDERED: Acetaminophen 325 MG TAB PO PRN (17:05)
[2023-01-24] MEDS ORDERED: hydrALAZINE 20 MG/ML VIAL SLOW IVP PRN (17:22)
[2023-01-24] MEDS: tiZANidine HCl 4 MG TAB PO PRN (19:52)
[2023-01-24] MEDS: Senokot S 8.6-50 MG TAB PO SCH (19:52)
[2023-01-24] MEDS: Aripiprazole 15 MG TAB PO SCH (19:53)
[2023-01-24] MEDS: Prazosin HCl 1 MG CAP PO SCH (19:53)
[2023-01-24] MEDS: Sodium Bicarbonate Tab 325 MG TAB PO SCH (19:53)
[2023-01-24] MEDS: Dicyclomine 20 MG TAB PO SCH (19:53)
[2023-01-24] MEDS: Nadolol 40 MG TAB PO SCH (19:54)
[2023-01-24] MEDS: Gabapentin 300 MG CAP PO SCH (19:55)
[2023-01-24] MEDS: Amantadine HCl 100 mg Capsule PO SCH (19:55)
[2023-01-24] MEDS: Latanoprost 0.005% Ophth Soln 2.5 ml Bottle EA EYE SCH (19:55)
[2023-01-24 21:10] LABS: Troponin I Less than 0.010 ng/mL (< 0.028)
[2023-01-24 21:35] LABS: Bilirubin Negative (Negative); Blood, Urine Negative (Negative); Clarity Clear (Clear); Glucose, Urine (Dipstick) 50 mg/dL (Negative); Ketone, Urine Negative (Negative); Leukocyte Negative Leu/uL (Negative); Nitrite Negative (Negative); Protein, Urine (Dipstick) 70 mg/dL (Neg-Trace); RBC/HPF 0-3 HPF (0-3); Specific Gravity, Urine 1.022 (1.002-1.036); Squamous Epithelial 0-3 HPF (0-3); Urobilinogen Normal mg/dL (Less than 2); WBC/HPF 0-3 HPF (0-3); pH, Urine 5.5 (5.0-9.0)
[2023-01-24 21:45] LABS: Bacteria/HPF 1+ HPF (None Seen)
[2023-01-24] MEDS: Insulin NPH Human Isophane 100 UNITS/ML (10 ML VIAL) SC SCH (22:10)
[2023-01-25] MEDS: Insulin Regular 300 UNITS/3 ML VIAL SC PRN ×2 (00:02→21:18)
[2023-01-25] MEDS: Levothyroxine Sodium 25 MCG TAB PO SCH (05:40)
[2023-01-25] MEDS ORDERED: glipiZIDE 10 MG TAB PO SCH (07:30)
[2023-01-25] MEDS: Gabapentin 300 MG CAP PO SCH ×2 (07:39→16:42)
[2023-01-25] MEDS: Sodium Bicarbonate Tab 325 MG TAB PO SCH ×4 (07:40→21:12)
[2023-01-25] MEDS: Multivitamin W/ Minerals 1 TAB PO SCH (07:40)
[2023-01-25] MEDS: Dicyclomine 20 MG TAB PO SCH ×3 (07:40→21:13)
[2023-01-25] MEDS: Senokot S 8.6-50 MG TAB PO SCH ×2 (07:40→21:16)
[2023-01-25] MEDS: tiZANidine HCl 4 MG TAB PO PRN ×3 (07:40→21:13)
[2023-01-25] MEDS: hydrOXYzine 25 MG TAB PO SCH (07:41)
[2023-01-25] MEDS: Loratadine 10 MG TAB PO SCH (07:41)
[2023-01-25] MEDS: Aspirin Chewable 81 MG TAB PO SCH (07:41)
[2023-01-25] MEDS: Amantadine HCl 100 mg Capsule PO SCH ×2 (07:41→21:12)
[2023-01-25] MEDS: Montelukast Sodium 10 mg Tablet PO SCH (07:41)
[2023-01-25] MEDS: Insulin NPH Human Isophane 100 UNITS/ML (10 ML VIAL) SC SCH ×2 (07:41→21:16)
[2023-01-25 08:35] LABS: Anion Gap 12 mmol/L (10-20); BUN (Urea Nitrogen) 39 mg/dL (9.8-20.1); Calc. Creatinine Clearance 63 mL/min (70-130); Calcium 7.8 mg/dL (7.8-10.44); Carbon Dioxide 15 mmol/L (22-29); Chloride 114 mmol/L (98-107); Estimated GFR 31; Glucose 246 mg/dL (70-105); Potassium 5.6 mmol/L (3.5-5.1); Sodium 135 mmol/L (136-145)
[2023-01-25] MEDS ORDERED: Loratadine 10 MG TAB PO SCH (09:00)
[2023-01-25] MEDS ORDERED: LOKELMA 10 GM PACKET PO SCH (14:00)
[2023-01-25] MEDS ORDERED: Regadenoson 0.4 MG/5 ML SYRINGE ONE (14:09)
[2023-01-25 14:51] LABS: Amphetamine Not Detected (NotDetected); Barbiturates Screen Not Detected (NotDetected); Benzodiazepine Screen Detected (NotDetected); Cocaine Metabolite Screen Not Detected (NotDetected); Methadone Not Detected (NotDetected); Methamphetamine Not Detected (NotDetected); Opiate Screen Detected (NotDetected); Oxycodone Screen Not Detected (NotDetected); Phencyclidine (PCP) Not Detected (NotDetected); THC/Cannabinoid Screen Not Detected (NotDetected); Tricyclic Screen Not Detected (NotDetected)
[2023-01-25 15:14] LABS: Creatinine, Urine 131.25 mg/dL (47-110)
[2023-01-25 15:23] LABS: #Eosinphils 0.1 thou/uL (0.0-0.7); #Monocytes 0.3 thou/uL (0.11-0.59); #Neutrophils 4.2 thou/uL (1.40-6.50); %Basophils 0.5 % (0.0-1.0); %Eosinophils 2.4 % (0.0-10.0); %Lymphocytes 20.2 % (21.0-51.0); %Monocytes 5.1 % (0.0-10.0); %Neutrophils 71.6 % (42.0-75.0); Hematocrit 32.7 % (36.0-47.0); Hemoglobin 10.2 g/dL (12.0-16.0); Mean Corpuscular HGB CONC 31.2 g/dL (32.0-36.0); Mean Corpuscular Hemoglobin 28.7 pg (27.0-31.0); Mean Corpuscular Volume 92.1 fl (78.0-98.0); Mean Platelet Volume 11.4 fL (7.4-10.4); RBC Distribution Width 15.6 % (11.5-14.5); Red Blood Cell (RBC) Count 3.55 mill/uL (4.20-5.40); White Blood Cell (WBC) Count 5.9 10x3/uL (4.8-10.8)
[2023-01-25 15:24] LABS: Platelet Count 111 10x3/uL (130-400)
[2023-01-25] MEDS ORDERED: Gabapentin 400 MG CAP PO SCH (15:45)
[2023-01-25] MEDS: Prazosin HCl 1 MG CAP PO SCH (21:12)
[2023-01-25] MEDS: Aripiprazole 15 MG TAB PO SCH (21:12)
[2023-01-25] MEDS: Gabapentin 400 MG CAP PO SCH (21:12)
[2023-01-25] MEDS: Nadolol 40 MG TAB PO SCH (21:13)
[2023-01-25] MEDS: Latanoprost 0.005% Ophth Soln 2.5 ml Bottle EA EYE SCH (21:15)
[2023-01-26] MEDS: Insulin Regular 300 UNITS/3 ML VIAL SC PRN (00:39)
[2023-01-26] MEDS: Levothyroxine Sodium 25 MCG TAB PO SCH (05:13)
[2023-01-26] MEDS: Gabapentin 400 MG CAP PO SCH ×2 (08:19→15:22)
[2023-01-26] MEDS: Multivitamin W/ Minerals 1 TAB PO SCH (08:21)
[2023-01-26] MEDS: Aspirin Chewable 81 MG TAB PO SCH (08:21)
[2023-01-26] MEDS: Montelukast Sodium 10 mg Tablet PO SCH (08:21)
[2023-01-26] MEDS: Dicyclomine 20 MG TAB PO SCH ×2 (08:21→15:22)
[2023-01-26] MEDS: Sodium Bicarbonate Tab 325 MG TAB PO SCH ×2 (08:21→15:21)
[2023-01-26] MEDS: Loratadine 10 MG TAB PO SCH (08:22)
[2023-01-26] MEDS: hydrOXYzine 25 MG TAB PO SCH (08:22)
[2023-01-26] MEDS: Senokot S 8.6-50 MG TAB PO SCH (08:23)
[2023-01-26 09:19] LABS: Albumin 3.4 g/dL (3.5-5.0); Anion Gap 12 mmol/L (10-20); BUN (Urea Nitrogen) 39 mg/dL (9.8-20.1); BUN/Creatinine Ratio 23.64; Calc. Creatinine Clearance 74 mL/min (70-130); Calcium 8.5 mg/dL (7.8-10.44); Carbon Dioxide 17 mmol/L (22-29); Chloride 111 mmol/L (98-107); Estimated GFR 37; Glucose 168 mg/dL (70-105); Phosphorus 3.3 mg/dL (2.3-4.7); Potassium 4.8 mmol/L (3.5-5.1); Sodium 135 mmol/L (136-145)
[2023-01-26] MEDS: Insulin NPH Human Isophane 100 UNITS/ML (10 ML VIAL) SC SCH (09:45)
[2023-01-26] MEDS: Amantadine HCl 100 mg Capsule PO SCH (09:45)
[2023-01-26] MEDS: tiZANidine HCl 4 MG TAB PO PRN ×2 (09:45→17:09)
[2023-01-26 15:21] VITALS: BP 143/68; TEMP 96.4
== END 2023-01-26 17:31 | disposition home or self-care (01) | DRG 683 ==
LOC: 2SW 14:45 → OBSVTOIN 01-25 15:47
PROVIDERS: ADMIT Hospitalist; ATTEND Family Medicine
DX: N17.9 Acute kidney failure, unspecified (principal); E87.20 Acidosis, unspecified; Z68.41 Body mass index [BMI] 40.0-44.9, adult; E87.21 Acute metabolic acidosis; I13.0 Hypertensive heart and chronic kidney disease with heart failure and stage 1 through stage 4 chronic kidney disease, or unspecified chronic kidney disease; I50.30 Unspecified diastolic (congestive) heart failure; M62.82 Rhabdomyolysis; F41.9 Anxiety disorder, unspecified; R07.89 Other chest pain; Z88.2 Allergy status to sulfonamides; Z88.8 Allergy status to other drugs, medicaments and biological substances; Z79.899 Other long term (current) drug therapy; F31.9 Bipolar disorder, unspecified; E11.40 Type 2 diabetes mellitus with diabetic neuropathy, unspecified; Z90.49 Acquired absence of other specified parts of digestive tract; Z98.890 Other specified postprocedural states; F17.210 Nicotine dependence, cigarettes, uncomplicated; E11.22 Type 2 diabetes mellitus with diabetic chronic kidney disease; E66.01 Morbid (severe) obesity due to excess calories; E87.5 Hyperkalemia; N18.30 Chronic kidney disease, stage 3 unspecified; D59.6 Hemoglobinuria due to hemolysis from other external causes; K74.69 Other cirrhosis of liver; G47.30 Sleep apnea, unspecified
CPT/HCPCS: 36415; 36416; 78452; 80048; 80069; 80306; 81001; 82550; 82570; 83735; 84300; 84540; 85025; 93017; 94760; 96374; A9500; G0378; J0360; J1815; J2785; J7050

== ENCOUNTER 2023-01-30 07:39 | Emergency (ER) | payer OTHER ==
[2023-01-30 08:49] LABS: #Eosinphils 0.2 thou/uL (0.0-0.7); #Monocytes 0.5 thou/uL (0.11-0.59); #Neutrophils 4.5 thou/uL (1.40-6.50); %Basophils 0.6 % (0.0-1.0); %Eosinophils 2.5 % (0.0-10.0); %Lymphocytes 20.5 % (21.0-51.0); %Monocytes 7.2 % (0.0-10.0); %Neutrophils 68.9 % (42.0-75.0); Hematocrit 30.9 % (36.0-47.0); Hemoglobin 10.1 g/dL (12.0-16.0); Mean Corpuscular HGB CONC 32.7 g/dL (32.0-36.0); Mean Corpuscular Hemoglobin 28.6 pg (27.0-31.0); Mean Corpuscular Volume 87.5 fl (78.0-98.0); Mean Platelet Volume 10.7 fL (7.4-10.4); Platelet Count 124 10x3/uL (130-400); RBC Distribution Width 15.2 % (11.5-14.5); Red Blood Cell (RBC) Count 3.53 mill/uL (4.20-5.40); White Blood Cell (WBC) Count 6.5 10x3/uL (4.8-10.8)
[2023-01-30 09:13] LABS: ALT (SGPT) 39 U/L (8-55); AST (SGOT) 31 U/L (5-34); Albumin 3.6 g/dL (3.5-5.0); Alkaline Phosphatase 102 U/L (40-110); Anion Gap 14 mmol/L (10-20); BUN (Urea Nitrogen) 38 mg/dL (9.8-20.1); Bilirubin, Total 0.4 mg/dL (0.2-1.2); Calc. Creatinine Clearance 0 mL/min (70-130); Calcium 9.1 mg/dL (7.8-10.44); Carbon Dioxide 23 mmol/L (22-29); Chloride 102 mmol/L (98-107); Estimated GFR 27; Globulin 3.5 g/dL (2.4-3.5); Glucose 330 mg/dL (70-105); Potassium 4.8 mmol/L (3.5-5.1); Protein, Total 7.1 g/dL (6.0-8.3); Sodium 134 mmol/L (136-145)
[2023-01-30 09:26] LABS: Bacteria/HPF None Seen HPF (None Seen); Bilirubin Negative (Negative); Blood, Urine 3+ (Negative); CAUTI Indications for Culture Acute Hematuria; Clarity Clear (Clear); Glucose, Urine (Dipstick) 150 mg/dL (Negative); Ketone, Urine Negative (Negative); Leukocyte Negative Leu/uL (Negative); Nitrite Negative (Negative); Protein, Urine (Dipstick) 50 mg/dL (Neg-Trace); RBC/HPF 0-3 HPF (0-3); Specific Gravity, Urine 1.019 (1.002-1.036); Urobilinogen Normal mg/dL (Less than 2); WBC/HPF 0-3 HPF (0-3); pH, Urine 5.5 (5.0-9.0)
[2023-01-30 09:34] LABS: Urine Culture Reflex No No
[2023-01-30 11:11] LABS: Lipase 193 U/L (8-78); Magnesium 1.6 mg/dL (1.6-2.6)
[2023-01-30 12:06] LABS: SARS-CoV-2 NAA Rapid Test Not Detected (NotDetected)
[2023-01-30 13:43] LABS: Troponin I Less than 0.010 ng/mL (< 0.028)
[2023-01-30] MEDS ORDERED: Acetaminophen 500 MG TAB ONE (14:14)
[2023-01-30] MEDS ORDERED: Ipratropium/Albuterol 3 ML NEB ONE (14:59)
== END 2023-01-30 15:58 | disposition home or self-care (01) ==
LOC: ERS 07:39
DX: N17.9 Acute kidney failure, unspecified (principal); R07.9 Chest pain, unspecified; E10.40 Type 1 diabetes mellitus with diabetic neuropathy, unspecified; E10.22 Type 1 diabetes mellitus with diabetic chronic kidney disease; N18.9 Chronic kidney disease, unspecified; I12.9 Hypertensive chronic kidney disease with stage 1 through stage 4 chronic kidney disease, or unspecified chronic kidney disease; J44.9 Chronic obstructive pulmonary disease, unspecified; F17.290 Nicotine dependence, other tobacco product, uncomplicated; Z20.822 Contact with and (suspected) exposure to COVID-19
CPT/HCPCS: 36415; 36416; 71045; 78451; 80053; 81001; 83690; 83735; 84484; 85025; 85379; 93005; 94640; A9540; J7620

== ENCOUNTER 2023-03-01 13:50 | Outpatient (CLI) | payer OTHER | END 2023-03-01 13:51 | disposition home or self-care (01) | LOC: BICRAD 13:50 | PROVIDERS: ATTEND Preventive Medicine Occupational Medicine | DX: M48.061 Spinal stenosis, lumbar region without neurogenic claudication (principal); M23.92 Unspecified internal derangement of left knee; M47.816 Spondylosis without myelopathy or radiculopathy, lumbar region | CPT/HCPCS: 72100 ==

== ENCOUNTER 2023-03-08 14:27 | Outpatient (CLI) | payer OTHER | END 2023-03-08 14:28 | disposition home or self-care (01) | LOC: BICULT 14:27 | PROVIDERS: ATTEND Otolaryngology Plastic Surgery within the Head & Neck | DX: E04.2 Nontoxic multinodular goiter (principal) | CPT/HCPCS: 76536 ==

== ENCOUNTER 2023-05-09 17:00 | Outpatient (CLI) | payer OTHER | END 2023-05-09 17:01 | disposition home or self-care (01) | LOC: SLEEPLAB 17:00 | PROVIDERS: ATTEND Internal Medicine | DX: G47.33 Obstructive sleep apnea (adult) (pediatric) (principal) | CPT/HCPCS: 95800 ==

== ENCOUNTER 2023-06-13 16:00 | Outpatient (CLI) | payer OTHER | END 2023-06-13 16:01 | disposition home or self-care (01) | LOC: SLEEPLAB 16:00 | PROVIDERS: ATTEND Internal Medicine | DX: G47.33 Obstructive sleep apnea (adult) (pediatric) (principal); R06.83 Snoring; G47.10 Hypersomnia, unspecified; E66.9 Obesity, unspecified; Z68.41 Body mass index [BMI] 40.0-44.9, adult | CPT/HCPCS: 95811 ==

== ENCOUNTER 2023-09-28 15:58 | Observation (INO) | payer OTHER ==
[~2023-09-28 15:58] MED LIST changes: -Iopamidol 370 76% 100 ML VIAL ONE; +Iopamidol-370 76% 500 ML MDV (1 ML CHARGE) ONE
[2023-09-28 16:49] LABS: #Basophils Less than 0.03 10x3/uL (0.0-0.2); %Basophils 0.2 % (0.0-1.0); %Eosinophils 1.2 % (0.0-10.0); %Lymphocytes 17.6 % (21.0-51.0); %Monocytes 6.4 % (0.0-10.0); %Neutrophils 74.2 % (42.0-75.0); Hematocrit 31.9 % (36.0-47.0); Hemoglobin 10.9 g/dL (12.0-16.0); Mean Corpuscular HGB CONC 34.2 g/dL (32.0-36.0); Mean Corpuscular Hemoglobin 28.8 pg (27.0-31.0); Mean Corpuscular Volume 84.4 fL (78.0-98.0); Mean Platelet Volume 12.1 fL (7.4-10.4); Platelet Count 151 10x3/uL (130-400); RBC Distribution Width 14.4 % (11.5-14.5); Red Blood Cell (RBC) Count 3.78 mill/uL (4.20-5.40)
[2023-09-28 17:10] LABS: Globulin 4.1 g/dL (2.4-3.5)
[2023-09-28 17:16] LABS: Troponin I Less than 0.010 ng/mL (< 0.028)
[2023-09-28 17:24] LABS: ALT (SGPT) 26 U/L (8-55); AST (SGOT) 25 U/L (5-34); Alkaline Phosphatase 162 U/L (40-110); Anion Gap 19 mmol/L (10-20); BUN (Urea Nitrogen) 17 mg/dL (9.8-20.1); Bilirubin, Total 0.5 mg/dL (0.2-1.2); Calc. Creatinine Clearance 0 mL/min (70-130); Calcium 8.8 mg/dL (7.8-10.44); Carbon Dioxide 17 mmol/L (22-29); Chloride 96 mmol/L (98-107); Estimated GFR 38; Glucose 728 mg/dL (70-105); Potassium 3.7 mmol/L (3.5-5.1); Protein, Total 7.1 g/dL (6.0-8.3); Sodium 128 mmol/L (136-145)
[2023-09-28] MEDS ORDERED: Morphine 4 MG/ML VIAL ONE ×2 (17:31→21:39)
[2023-09-28] MEDS ORDERED: Ondansetron PF 4 MG/2 ML Vial ONE (17:32)
[2023-09-28 17:55] LABS: INR-International Normal Ratio 1.1; PTT 26.8 sec (22.9-36.1); Prothrombin Time 13.9 sec (12.0-14.7)
[2023-09-28 18:23] LABS: Actual Bicarbonate (HCO3v) 20.8 mEq/L (22-28); Base Excess -2.4 mEq/L (-2.0 to +3.0); Calcium, Ionized (venous) 1.08 mmol/L (1.16-1.32); Chloride (VBG) 96 mmol/L (98-106); Hematocrit-VBG 35 % (36.0-47.0); Hemoglobin (Hb) 11.9 g/dL (11.7-16.0); Potassium (VBG) 3.77 mmol/L (3.70-5.30); Sodium 131 mmol/L (133-146); pH (venous) 7.444 (7.32-7.43)
[2023-09-28 18:27] LABS: Bacteria/HPF None Seen HPF (None Seen); Bilirubin Negative (Negative); Blood, Urine 1+ (Negative); CAUTI Indications for Culture Dysuria,urgency,freq; Clarity Clear (Clear); Glucose, Urine (Dipstick) Greater than 1000 mg/dL (Negative); Ketone, Urine Negative (Negative); Leukocyte Negative Leu/uL (Negative); Nitrite Negative (Negative); Protein, Urine (Dipstick) 70 mg/dL (Neg-Trace); RBC/HPF 0-3 HPF (0-3); Specific Gravity, Urine 1.051 (1.002-1.036); Squamous Epithelial 0-3 HPF (0-3); Urobilinogen Normal mg/dL (Less than 2)
[2023-09-28 18:29] LABS: Urine Culture Reflex No No
[2023-09-28 18:53] LABS: CK (CPK) 73 U/L (29-168); Lipase 72 U/L (8-78)
[2023-09-28] MEDS ORDERED: Insulin Regular 300 UNITS/3 ML VIAL ONE (19:09)
[2023-09-28] MEDS ORDERED: Gabapentin 400 MG CAP ONE (21:39)
[2023-09-28 21:55] LABS: Lactic Acid 2.7 mmol/L (0.5-2.2)
[2023-09-28] MEDS ORDERED: Ondansetron PF 4 MG/2 ML Vial IVP PRN (22:18)
[2023-09-28] MEDS ORDERED: Acetaminophen 325 MG TAB PO PRN (22:18)
[2023-09-28] MEDS ORDERED: Glucagon 1 MG/ML KIT IM PRN (22:21)
[2023-09-28] MEDS ORDERED: Dextrose 5% in Water 1,000 ML IV PRN (22:21)
[2023-09-28] MEDS ORDERED: HumaLOG 300 UNITS/3 ML VIAL SC PRN (22:21)
[2023-09-28] MEDS ORDERED: Dextrose 50% Abboject 50 ML SYRINGE SLOW IVP PRN (22:21)
[2023-09-28] MEDS ORDERED: Ipratropium/Albuterol 3 ML NEB EZPAP PRN (22:46)
[2023-09-28 23:15] LABS: Troponin I Less than 0.010 ng/mL (< 0.028)
[2023-09-29] MEDS ORDERED: Pantoprazole 40 MG VIAL ONE ×2 (02:58→07:40)
[2023-09-29] MEDS ORDERED: Senokot S 8.6-50 MG TAB ONE ×2 (02:58→07:47)
[2023-09-29] MEDS ORDERED: Polyethylene Glycol 3350 17 GM Packet ONE ×2 (02:58→07:47)
[2023-09-29] MEDS: HumuLIN 70/30 (300 UNITS/3 ML VIAL) SC SCH ×2 (03:17→09:40)
[2023-09-29] MEDS: Polyethylene Glycol 3350 17 GM Packet PO SCH ×2 (03:17→08:46)
[2023-09-29] MEDS: Pantoprazole 40 MG VIAL IVP SCH ×2 (03:17→08:46)
[2023-09-29] MEDS: Senokot S 8.6-50 MG TAB PO SCH ×2 (03:17→08:46)
[2023-09-29] MEDS ORDERED: HYDROcodone/Acetaminophen 10/325 mg Tablet ONE ×2 (05:03→09:05)
[2023-09-29] MEDS: HYDROcodone/Acetaminophen 10/325 mg Tablet PO PRN (05:06)
[2023-09-29] MEDS ORDERED: Levothyroxine Sodium 100 MCG TAB ONE (06:29)
[2023-09-29] MEDS: Levothyroxine Sodium 25 MCG TAB PO SCH (06:33)
[2023-09-29 07:03] LABS: Anion Gap 14 mmol/L (10-20); BUN (Urea Nitrogen) 14 mg/dL (9.8-20.1); Calc. Creatinine Clearance 83 mL/min (70-130); Calcium 8.9 mg/dL (7.8-10.44); Carbon Dioxide 24 mmol/L (22-29); Chloride 101 mmol/L (98-107); Estimated GFR 47; Glucose 461 mg/dL (70-105); Potassium 3.9 mmol/L (3.5-5.1); Sodium 135 mmol/L (136-145)
[2023-09-29 07:05] LABS: Troponin I Less than 0.010 ng/mL (< 0.028)
[2023-09-29 07:29] LABS: #Basophils 0.05 10x3/uL (0.0-0.2); %Basophils 0.7 % (0.0-1.0); %Eosinophils 3.8 % (0.0-10.0); %Lymphocytes 23.1 % (21.0-51.0); %Monocytes 7.6 % (0.0-10.0); %Neutrophils 64.5 % (42.0-75.0); Hematocrit 33.3 % (36.0-47.0); Mean Corpuscular Hemoglobin 28.1 pg (27.0-31.0); Mean Corpuscular Volume 84.9 fL (78.0-98.0); Mean Platelet Volume 12.1 fL (7.4-10.4); Platelet Count 131 10x3/uL (130-400); RBC Distribution Width 14.7 % (11.5-14.5); Red Blood Cell (RBC) Count 3.92 mill/uL (4.20-5.40)
[2023-09-29] MEDS ORDERED: Gabapentin 400 MG CAP ONE (07:39)
[2023-09-29 07:42] LABS: Hemoglobin A1c 11.4 % (4.0-6.0)
[2023-09-29] MEDS: Gabapentin 300 MG CAP PO SCH (08:45)
[2023-09-29] MEDS ORDERED: HumuLIN 70/30 (300 UNITS/3 ML VIAL) SC SCH (09:00)
[2023-09-29] MEDS ORDERED: Mometasone 200 MCG/Formoterol 5 MCG 120 PUFF INHALER INH PRN (09:05)
[2023-09-29] MEDS: glipiZIDE 10 MG TAB PO SCH (09:40)
[2023-09-29] MEDS ORDERED: tiZANidine HCl 4 MG TAB ONE (10:37)
[2023-09-29] MEDS: Montelukast Sodium 10 mg Tablet PO SCH (10:41)
[2023-09-29] MEDS: tiZANidine HCl 4 MG TAB PO PRN (10:42)
[2023-09-29] MEDS: Bisacodyl 5 MG TAB PO SCH (11:24)
[2023-09-29 11:37] LABS: Lactic Acid 2.1 mmol/L (0.5-2.2)
[2023-09-29 12:01] LABS: Troponin I Less than 0.010 ng/mL (< 0.028)
[2023-09-29] MEDS: HumaLOG 300 UNITS/3 ML VIAL SC PRN (13:27)
[2023-09-29] MEDS: Lactated Ringer's 1,000 ML IV SCH (13:55)
[2023-09-29 16:25] VITALS: BP 107/55; TEMP 98
[2023-09-29 20:53] VITALS: BMI 43.1
[2023-09-29] MEDS ORDERED: Aripiprazole 15 MG TAB PO SCH (21:00)
[2023-09-29] MEDS ORDERED: Prazosin HCl 1 MG CAP PO SCH (21:00)
[2023-09-29] MEDS ORDERED: Nadolol 40 MG TAB PO SCH (21:00)
== END 2023-09-29 17:30 | disposition left against medical advice (07) ==
LOC: ERS 15:58 → ERHOLD 22:22 → 2SW 22:36
PROVIDERS: ADMIT Internal Medicine; ATTEND Internal Medicine
DX: R10.10 Upper abdominal pain, unspecified (principal); M54.50 Low back pain, unspecified; M54.6 Pain in thoracic spine; I12.9 Hypertensive chronic kidney disease with stage 1 through stage 4 chronic kidney disease, or unspecified chronic kidney disease; N17.9 Acute kidney failure, unspecified; N18.30 Chronic kidney disease, stage 3 unspecified; E11.22 Type 2 diabetes mellitus with diabetic chronic kidney disease; E11.42 Type 2 diabetes mellitus with diabetic polyneuropathy; E11.65 Type 2 diabetes mellitus with hyperglycemia; E87.1 Hypo-osmolality and hyponatremia; J44.9 Chronic obstructive pulmonary disease, unspecified; E03.9 Hypothyroidism, unspecified; E04.1 Nontoxic single thyroid nodule; Z88.2 Allergy status to sulfonamides; Z79.899 Other long term (current) drug therapy; Z79.51 Long term (current) use of inhaled steroids; Z79.4 Long term (current) use of insulin; Z79.890 Hormone replacement therapy; Z79.84 Long term (current) use of oral hypoglycemic drugs; K74.60 Unspecified cirrhosis of liver; Z90.49 Acquired absence of other specified parts of digestive tract; Z98.890 Other specified postprocedural states; F17.210 Nicotine dependence, cigarettes, uncomplicated
CPT/HCPCS: 36415; 36416; 71045; 71260; 72148; 72192; 74177; 80048; 80053; 81001; 82010; 82550; 82805; 83036; 83605; 83690; 83735; 83880; 83930; 84443; 84484; 85025; 85610; 85730; 93005; 96361; 96374; 96375; 96376; C9113; G0378; J1815; J2270; J2405; J7120; Q9967

== ENCOUNTER 2023-10-18 10:03 | Inpatient (IN) | payer OTHER ==
[2023-10-18 10:53] LABS: #Basophils 0.04 10x3/uL (0.0-0.2); %Basophils 0.5 % (0.0-1.0); %Lymphocytes 17.6 % (21.0-51.0); %Monocytes 5.5 % (0.0-10.0); %Neutrophils 75.1 % (42.0-75.0); Hematocrit 31.7 % (36.0-47.0); Hemoglobin 11.1 g/dL (12.0-16.0); Mean Corpuscular Hemoglobin 28.5 pg (27.0-31.0); Mean Corpuscular Volume 81.3 fL (78.0-98.0); Mean Platelet Volume 11.7 fL (7.4-10.4); Platelet Count 130 10x3/uL (130-400); RBC Distribution Width 13.7 % (11.5-14.5)
[2023-10-18 11:16] LABS: ALT (SGPT) 25 U/L (8-55); AST (SGOT) 24 U/L (5-34); Albumin 2.9 g/dL (3.5-5.0); Alkaline Phosphatase 125 U/L (40-110); Anion Gap 16 mmol/L (10-20); BUN (Urea Nitrogen) 29 mg/dL (9.8-20.1); Bilirubin, Total 0.5 mg/dL (0.2-1.2); Calc. Creatinine Clearance 0 mL/min (70-130); Calcium 8.5 mg/dL (7.8-10.44); Carbon Dioxide 20 mmol/L (22-29); Chloride 96 mmol/L (98-107); Estimated GFR 28; Globulin 3.8 g/dL (2.4-3.5); Glucose 665 mg/dL (70-105); Lipase 52 U/L (8-78); Potassium 3.7 mmol/L (3.5-5.1); Protein, Total 6.7 g/dL (6.0-8.3); Sodium 128 mmol/L (136-145)
[2023-10-18] MEDS ORDERED: Aspirin Chewable 81 MG TAB ONE (11:29)
[2023-10-18] MEDS ORDERED: HYDROcodone/Acetaminophen 5/325 mg Tablet ONE (11:29)
[2023-10-18] MEDS ORDERED: Insulin Regular, Human 100 UNIT/ML 10 ML VIAL ONE (11:29)
[2023-10-18 11:37] LABS: Actual Bicarbonate (HCO3v) 19.9 mEq/L (22-28); Base Excess -3.9 mEq/L (-2.0 to +3.0); Calcium, Ionized (venous) 1.09 mmol/L (1.16-1.32); Chloride (VBG) 97 mmol/L (98-106); Hematocrit-VBG 34 % (36.0-47.0); Hemoglobin (Hb) 11.4 g/dL (11.7-16.0); Potassium (VBG) 3.84 mmol/L (3.70-5.30); Sodium 130 mmol/L (133-146); pH (venous) 7.411 (7.32-7.43)
[2023-10-18 11:49] LABS: Bacteria/HPF None Seen HPF (None Seen); Bilirubin Negative (Negative); Blood, Urine 1+ (Negative); CAUTI Indications for Culture Dysuria,urgency,freq; Clarity Clear (Clear); Glucose, Urine (Dipstick) Greater than 1000 mg/dL (Negative); Ketone, Urine Negative (Negative); Leukocyte 75 Leu/uL (Negative); Nitrite Negative (Negative); Protein, Urine (Dipstick) 50 mg/dL (Neg-Trace); RBC/HPF 0-3 HPF (0-3); Urobilinogen Normal mg/dL (Less than 2); WBC/HPF 0-3 HPF (0-3)
[2023-10-18 11:51] LABS: Urine Culture Reflex No No
[2023-10-18] MEDS ORDERED: Gabapentin 300 MG CAP ONE (13:02)
[2023-10-18 13:57] LABS: Troponin I Less than 0.010 ng/mL (< 0.028)
[2023-10-18] MEDS ORDERED: Dextrose 5% in Water 1,000 ML IV PRN (14:23)
[2023-10-18] MEDS ORDERED: Guaifenesin DM 100-10/5 ML UDCUP PO PRN (14:23)
[2023-10-18] MEDS ORDERED: Acetaminophen 325 MG TAB PO PRN (14:23)
[2023-10-18] MEDS ORDERED: Dextrose 50% Abboject 50 ML SYRINGE SLOW IVP PRN (14:23)
[2023-10-18] MEDS ORDERED: Senokot S 8.6-50 MG TAB PO PRN (14:23)
[2023-10-18] MEDS ORDERED: Glucagon 1 MG/ML KIT IM PRN (14:23)
[2023-10-18] MEDS ORDERED: Insulin Reg, Human 100 UNITS in Sodium Chloride 0.9% 100 ML IVPB SCH (15:15)
[2023-10-18] MEDS ORDERED: Albuterol 200 PUFF INH INH PRN (15:21)
[2023-10-18 16:31] LABS: Anion Gap 13 mmol/L (10-20); BUN (Urea Nitrogen) 26 mg/dL (9.8-20.1); Calc. Creatinine Clearance 0 mL/min (70-130); Calcium 7.6 mg/dL (7.8-10.44); Carbon Dioxide 19 mmol/L (22-29); Chloride 101 mmol/L (98-107); Estimated GFR 33; Glucose 435 mg/dL (70-105); Potassium 3.4 mmol/L (3.5-5.1); Sodium 130 mmol/L (136-145)
[2023-10-18] MEDS: HumaLOG 300 UNITS/3 ML VIAL SC PRN (18:29)
[2023-10-18] MEDS: Sodium Chloride 0.9% 1,000 ML IV SCH (18:34)
[2023-10-18 20:33] VITALS: BMI 40.5
[2023-10-18] MEDS: Famotidine/PF 20 mg/2ml Vial SLOW IVP SCH (20:49)
[2023-10-18] MEDS: Latanoprost 0.005% Ophth Soln 2.5 ml Bottle EA EYE SCH (20:49)
[2023-10-18] MEDS: Aripiprazole 15 MG TAB PO SCH (20:49)
[2023-10-18] MEDS: Cephalexin 250 MG CAP PO SCH (20:49)
[2023-10-18] MEDS: Pantoprazole DR 40 MG TAB PO SCH (20:49)
[2023-10-18] MEDS: Amantadine HCl 100 mg Capsule PO SCH (20:49)
[2023-10-18] MEDS: Nicotine 14 MG PATCH TD SCH (20:49)
[2023-10-18] MEDS: Insulin Glargine 30 UNITS/0.3 ML VIAL SC SCH (20:50)
[2023-10-18] MEDS ORDERED: Electrolyte Replacement Protocol 1 EACH FS SCH (21:00)
[2023-10-18] MEDS: HYDROcodone/Acetaminophen 5/325 mg Tablet PO SCH (21:08)
[2023-10-18] MEDS: HYDROcodone/Acetaminophen 5/325 mg Tablet PO PRN (21:08)
[2023-10-18] MEDS: Gabapentin 300 MG CAP PO SCH (21:09)
[2023-10-18] MEDS: Potassium Chloride 20 MEQ TAB PO SCH (21:09)
[2023-10-18] MEDS: Insulin Regular, Human 100 UNIT/ML 10 ML VIAL IVP SCH (22:58)
[2023-10-18] MEDS: Lactated Ringer's 1,000 ML IV SCH (22:58)
[2023-10-19 03:58] LABS: Amphetamine Not Detected (NotDetected); Barbiturates Screen Not Detected (NotDetected); Benzodiazepine Screen Not Detected (NotDetected); Cocaine Metabolite Screen Not Detected (NotDetected); Methadone Not Detected (NotDetected); Methamphetamine Not Detected (NotDetected); Opiate Screen Detected (NotDetected); Oxycodone Screen Not Detected (NotDetected); Phencyclidine (PCP) Not Detected (NotDetected); THC/Cannabinoid Screen Not Detected (NotDetected); Tricyclic Screen Not Detected (NotDetected)
[2023-10-19 04:04] LABS: #Basophils 0.04 10x3/uL (0.0-0.2); %Basophils 0.6 % (0.0-1.0); %Eosinophils 1.7 % (0.0-10.0); %Lymphocytes 20.9 % (21.0-51.0); %Monocytes 6.6 % (0.0-10.0); %Neutrophils 69.9 % (42.0-75.0); Hematocrit 35.8 % (36.0-47.0); Hemoglobin 11.8 g/dL (12.0-16.0); Mean Corpuscular Hemoglobin 28.6 pg (27.0-31.0); Mean Corpuscular Volume 86.9 fL (78.0-98.0); Mean Platelet Volume 11.2 fL (7.4-10.4); Platelet Count 126 10x3/uL (130-400); RBC Distribution Width 14.1 % (11.5-14.5); Red Blood Cell (RBC) Count 4.12 mill/uL (4.20-5.40)
[2023-10-19 04:32] LABS: Anion Gap 16 mmol/L (10-20); BUN (Urea Nitrogen) 23 mg/dL (9.8-20.1); Calc. Creatinine Clearance 70 mL/min (70-130); Calcium 9.2 mg/dL (7.8-10.44); Carbon Dioxide 19 mmol/L (22-29); Chloride 104 mmol/L (98-107); Estimated GFR 39; Glucose 217 mg/dL (70-105); Potassium 3.8 mmol/L (3.5-5.1); Sodium 135 mmol/L (136-145)
[2023-10-19 07:51] VITALS: BMI 40.5
[2023-10-19] MEDS ORDERED: tiZANidine HCl 4 MG TAB PO PRN (08:58)
[2023-10-19] MEDS ORDERED: Liraglutide [Victoza 2-Pak] 0.6 MG/0.1 ML Pen.Injctr SC SCH (09:00)
[2023-10-19] MEDS: Enoxaparin 40 MG (0.4 mL) SYRINGE SC SCH (09:08)
[2023-10-19] MEDS: Empagliflozin 25 MG TAB PO SCH (09:08)
[2023-10-19] MEDS: Torsemide 20 MG TAB PO SCH (09:09)
[2023-10-19] MEDS: Spironolactone 100 MG TAB PO SCH (09:09)
[2023-10-19] MEDS: Levothyroxine Sodium 25 MCG TAB PO SCH (09:09)
[2023-10-19] MEDS: DULoxetine 30 MG CAP PO SCH (09:19)
[2023-10-19] MEDS: Gabapentin 300 MG CAP PO SCH (09:20)
[2023-10-19 11:34] VITALS: BP 145/74; TEMP 98.1
[2023-10-19] MEDS: HYDROcodone/Acetaminophen 5/325 mg Tablet PO PRN (11:44)
[2023-10-20] MEDS ORDERED: Empagliflozin 25 MG TAB PO SCH (09:00)
== END 2023-10-19 15:48 | disposition home or self-care (01) | DRG 682 ==
LOC: ERS 10:03 → 2NO 14:23
PROVIDERS: ADMIT Hospitalist; ATTEND Hospitalist
DX: N17.9 Acute kidney failure, unspecified (principal); E11.00 Type 2 diabetes mellitus with hyperosmolarity without nonketotic hyperglycemic-hyperosmolar coma (NKHHC); E11.10 Type 2 diabetes mellitus with ketoacidosis without coma; E87.1 Hypo-osmolality and hyponatremia; I13.0 Hypertensive heart and chronic kidney disease with heart failure and stage 1 through stage 4 chronic kidney disease, or unspecified chronic kidney disease; L03.116 Cellulitis of left lower limb; R07.81 Pleurodynia; E11.65 Type 2 diabetes mellitus with hyperglycemia; N18.4 Chronic kidney disease, stage 4 (severe); Z88.1 Allergy status to other antibiotic agents; Z88.2 Allergy status to sulfonamides; Z79.4 Long term (current) use of insulin; Z79.899 Other long term (current) drug therapy; K74.60 Unspecified cirrhosis of liver; I50.9 Heart failure, unspecified; E11.22 Type 2 diabetes mellitus with diabetic chronic kidney disease; J44.9 Chronic obstructive pulmonary disease, unspecified; Z98.890 Other specified postprocedural states; F41.9 Anxiety disorder, unspecified; F17.210 Nicotine dependence, cigarettes, uncomplicated; F31.9 Bipolar disorder, unspecified; I95.9 Hypotension, unspecified
CPT/HCPCS: 36415; 36416; 71045; 72125; 72128; 80048; 80053; 80306; 81001; 82010; 82805; 83690; 83880; 84484; 85025; 85379; 93005; 96374; J1650; J1815; J7050; J7120; S0028

== ENCOUNTER 2023-12-08 19:20 | Inpatient (IN) | payer OTHER ==
[2023-12-08] MEDS ORDERED: Ondansetron PF 4 MG/2 ML Vial ONE (19:38)
[2023-12-08] MEDS ORDERED: Morphine 4 MG/ML VIAL ONE (19:38)
[2023-12-08 19:50] LABS: #Basophils 0.04 10x3/uL (0.0-0.2); %Basophils 0.3 % (0.0-1.0); %Eosinophils 1.2 % (0.0-10.0); %Lymphocytes 9.2 % (21.0-51.0); %Monocytes 3.8 % (0.0-10.0); %Neutrophils 84.4 % (42.0-75.0); Hematocrit 34.8 % (36.0-47.0); Hemoglobin 11.3 g/dL (12.0-16.0); Mean Corpuscular HGB CONC 32.5 g/dL (32.0-36.0); Mean Corpuscular Hemoglobin 28.4 pg (27.0-31.0); Mean Corpuscular Volume 87.4 fL (78.0-98.0); Mean Platelet Volume 11.6 fL (7.4-10.4); Platelet Count 138 10x3/uL (130-400); Red Blood Cell (RBC) Count 3.98 mill/uL (4.20-5.40)
[2023-12-08 20:00] LABS: Alcohol Less than 10.0 mg/dL (Less than 10)
[2023-12-08 20:02] LABS: ALT (SGPT) 46 U/L (8-55); AST (SGOT) 62 U/L (5-34); Alkaline Phosphatase 144 U/L (40-110); Anion Gap 16 mmol/L (10-20); BUN (Urea Nitrogen) 14 mg/dL (9.8-20.1); Bilirubin, Total 1.6 mg/dL (0.2-1.2); Calc. Creatinine Clearance 0 mL/min (70-130); Calcium 9.5 mg/dL (7.8-10.44); Carbon Dioxide 22 mmol/L (22-29); Chloride 103 mmol/L (98-107); Estimated GFR 46; Globulin 3.8 g/dL (2.4-3.5); Glucose 243 mg/dL (70-105); Lipase 65 U/L (8-78); Protein, Total 6.8 g/dL (6.0-8.3); Sodium 138 mmol/L (136-145)
[2023-12-08] MEDS ORDERED: Boostrix 0.5 ML (Tdap) VIAL (>/=7 yrs of age) ONE (20:40)
[2023-12-08] MEDS ORDERED: Magnesium 2 GM/50 ML BAG (IN WATER) ONE (20:40)
[2023-12-08 21:16] LABS: Bilirubin Negative (Negative); Blood, Urine 2+ (Negative); CAUTI Indications for Culture Pelvic or flank pain; Clarity Clear (Clear); Glucose, Urine (Dipstick) 100 mg/dL (Negative); Ketone, Urine 20 mg/dL (Negative); Leukocyte Negative Leu/uL (Negative); Nitrite Negative (Negative); Protein, Urine (Dipstick) 600 mg/dL (Neg-Trace); RBC/HPF 0-3 HPF (0-3); Squamous Epithelial 0-3 HPF (0-3); Urobilinogen 6 mg/dL (Less than 2); WBC/HPF 0-3 HPF (0-3); pH, Urine 6.5 (5.0-9.0)
[2023-12-08 21:17] LABS: Bacteria/HPF 1+ HPF (None Seen); Specific Gravity, Urine 1.049 (1.002-1.036)
[2023-12-08 21:18] LABS: Urine Culture Reflex No No
[2023-12-08 21:21] LABS: Amphetamine Detected (NotDetected); Barbiturates Screen Not Detected (NotDetected); Benzodiazepine Screen Detected (NotDetected); Cocaine Metabolite Screen Not Detected (NotDetected); Methadone Not Detected (NotDetected); Methamphetamine Detected (NotDetected); Opiate Screen Detected (NotDetected); Oxycodone Screen Not Detected (NotDetected); Phencyclidine (PCP) Not Detected (NotDetected); THC/Cannabinoid Screen Not Detected (NotDetected); Tricyclic Screen Not Detected (NotDetected)
[2023-12-08] MEDS ORDERED: Ondansetron PF 4 MG/2 ML Vial IVP PRN (22:31)
[2023-12-08] MEDS ORDERED: Morphine 2 MG/ML VIAL SLOW IVP PRN (22:31)
[2023-12-08] MEDS ORDERED: traMADol HCl 50 MG TAB PO PRN (22:31)
[2023-12-09] MEDS: Potassium Chloride 10 MEQ in Premix 1 BAG IVPB SCH (05:37)
[2023-12-09] MEDS: Sodium Chloride 0.9% 1,000 ML IV SCH ×3 (05:37→13:49)
[2023-12-09] MEDS ORDERED: Non-Formulary Item 1 EACH (Albuterol 200 PUFF Inh) INH PRN (08:33)
[2023-12-09] MEDS ORDERED: Albuterol 200 PUFF (6.7GM INHALER) INH PRN (09:56)
[2023-12-09] MEDS: Levothyroxine Sodium 25 MCG TAB PO SCH ×2 (11:26→13:49)
[2023-12-09] MEDS: Famotidine 20 MG TAB PO SCH (11:26)
[2023-12-09] MEDS: hydrALAZINE 20 MG/ML VIAL SLOW IVP SCH ×2 (11:26→13:49)
[2023-12-09] MEDS: traMADol HCl 50 MG TAB PO SCH (11:27)
[2023-12-09] MEDS: DULoxetine 30 MG CAP PO SCH (11:27)
[2023-12-09] MEDS: Amantadine HCl 100 mg Capsule PO SCH (11:27)
[2023-12-09] MEDS: Gabapentin 100 MG CAP PO SCH (11:28)
[2023-12-09] MEDS: Acetaminophen 500 MG TAB PO SCH (11:28)
[2023-12-09] MEDS ORDERED: tiZANidine HCl 4 MG TAB PO PRN (12:15)
[2023-12-09 13:25] LABS: #Basophils Less than 0.03 10x3/uL (0.0-0.2); %Basophils 0.2 % (0.0-1.0); %Lymphocytes 10.2 % (21.0-51.0); %Neutrophils 84.2 % (42.0-75.0); Hematocrit 30.9 % (36.0-47.0); Mean Corpuscular HGB CONC 32.4 g/dL (32.0-36.0); Mean Corpuscular Hemoglobin 28.7 pg (27.0-31.0); Mean Corpuscular Volume 88.5 fL (78.0-98.0); Mean Platelet Volume 11.9 fL (7.4-10.4); Platelet Count 113 10x3/uL (130-400); RBC Distribution Width 14.1 % (11.5-14.5); Red Blood Cell (RBC) Count 3.49 mill/uL (4.20-5.40)
[2023-12-09 13:30] VITALS: BMI 37.3
[2023-12-09 13:44] LABS: Anion Gap 12 mmol/L (10-20); BUN (Urea Nitrogen) 11 mg/dL (9.8-20.1); Calc. Creatinine Clearance 101 mL/min (70-130); Calcium 8.5 mg/dL (7.8-10.44); Carbon Dioxide 21 mmol/L (22-29); Chloride 107 mmol/L (98-107); Estimated GFR 67; Glucose 210 mg/dL (70-105); Potassium 3.4 mmol/L (3.5-5.1); Sodium 137 mmol/L (136-145)
[2023-12-09] MEDS: Non-Formulary Item 1 EACH (Amantadine Hcl [Amantadine] 100 MG Tablet) PO SCH (13:49)
[2023-12-09] MEDS: Acetaminophen 325 MG TAB PO SCH (17:45)
[2023-12-10] MEDS: HYDROcodone/Acetaminophen 10/325 mg Tablet PO PRN (00:06)
[2023-12-10] MEDS: Levothyroxine Sodium 25 MCG TAB PO SCH (05:23)
[2023-12-10] MEDS: hydrALAZINE 20 MG/ML VIAL SLOW IVP PRN (06:17)
[2023-12-10 07:29] LABS: #Basophils Less than 0.03 10x3/uL (0.0-0.2); %Basophils 0.1 % (0.0-1.0); %Eosinophils 2.9 % (0.0-10.0); %Lymphocytes 15.6 % (21.0-51.0); %Monocytes 5.8 % (0.0-10.0); %Neutrophils 75.3 % (42.0-75.0); Hematocrit 29.5 % (36.0-47.0); Hemoglobin 9.6 g/dL (12.0-16.0); Mean Corpuscular HGB CONC 32.5 g/dL (32.0-36.0); Mean Corpuscular Hemoglobin 28.6 pg (27.0-31.0); Mean Corpuscular Volume 87.8 fL (78.0-98.0); Mean Platelet Volume 10.7 fL (7.4-10.4); Platelet Count 105 10x3/uL (130-400); RBC Distribution Width 14.1 % (11.5-14.5); Red Blood Cell (RBC) Count 3.36 mill/uL (4.20-5.40)
[2023-12-10 07:40] LABS: Anion Gap 10 mmol/L (10-20); BUN (Urea Nitrogen) 12 mg/dL (9.8-20.1); Calc. Creatinine Clearance 113 mL/min (70-130); Calcium 8.3 mg/dL (7.8-10.44); Carbon Dioxide 21 mmol/L (22-29); Chloride 111 mmol/L (98-107); Estimated GFR 72; Glucose 140 mg/dL (70-105); Magnesium 1.9 mg/dL (1.6-2.6); Phosphorus 2.1 mg/dL (2.3-4.7); Potassium 3.2 mmol/L (3.5-5.1); Sodium 139 mmol/L (136-145)
[2023-12-10] MEDS: Potassium Chloride 20 MEQ in Premix 1 BAG IVPB SCH (09:24)
[2023-12-10] MEDS: Lactated Ringer's 1,000 ML IV SCH (09:24)
[2023-12-10] MEDS: Polyethylene Glycol 3350 17 GM Packet PO SCH (09:24)
[2023-12-10] MEDS: Senokot S 8.6-50 MG TAB PO SCH (09:25)
[2023-12-10] MEDS: Gabapentin 100 MG CAP PO SCH (09:25)
[2023-12-10] MEDS: Nadolol 40 MG TAB PO SCH (09:25)
[2023-12-10] MEDS: Magnesium Oxide 400 MG TAB PO SCH (09:25)
[2023-12-10] MEDS: Pantoprazole DR 40 MG TAB PO SCH (09:26)
[2023-12-10 10:09] LABS: ALT (SGPT) 28 U/L (8-55); AST (SGOT) 29 U/L (5-34); Albumin 2.2 g/dL (3.5-5.0); Alkaline Phosphatase 108 U/L (40-110); Bilirubin, Direct 0.5 mg/dL (0.1-0.3); Bilirubin, Total 0.9 mg/dL (0.2-1.2); Protein, Total 5.6 g/dL (6.0-8.3)
[2023-12-10] MEDS: Gabapentin 400 MG CAP PO SCH (15:21)
[2023-12-10] MEDS ORDERED: Glucagon 1 MG/ML KIT IM PRN (18:00)
[2023-12-10] MEDS ORDERED: Dextrose 5% in Water 1,000 ML IV PRN (18:00)
[2023-12-10] MEDS ORDERED: Dextrose 50% Abboject 50 ML SYRINGE SLOW IVP PRN (18:00)
[2023-12-10] MEDS: Insulin Lispro 100 UNIT/ML 10 ML VIAL SC PRN (18:01)
[2023-12-11 06:26] LABS: Anion Gap 10 mmol/L (10-20); BUN (Urea Nitrogen) 12 mg/dL (9.8-20.1); Calc. Creatinine Clearance 126 mL/min (70-130); Calcium 8.8 mg/dL (7.8-10.44); Carbon Dioxide 21 mmol/L (22-29); Chloride 108 mmol/L (98-107); Estimated GFR 82; Glucose 163 mg/dL (70-105); Potassium 3.8 mmol/L (3.5-5.1); Sodium 135 mmol/L (136-145)
[2023-12-11] MEDS: Magnesium Oxide 400 MG TAB PO SCH (09:00)
[2023-12-11] MEDS: Spironolactone 100 MG TAB PO SCH (09:03)
[2023-12-12 06:06] LABS: #Basophils 0.03 10x3/uL (0.0-0.2); %Basophils 0.5 % (0.0-1.0); %Lymphocytes 19.4 % (21.0-51.0); %Neutrophils 68.4 % (42.0-75.0); Hematocrit 30.2 % (36.0-47.0); Hemoglobin 9.5 g/dL (12.0-16.0); Mean Corpuscular HGB CONC 31.5 g/dL (32.0-36.0); Mean Corpuscular Hemoglobin 28.1 pg (27.0-31.0); Mean Corpuscular Volume 89.3 fL (78.0-98.0); Mean Platelet Volume 10.7 fL (7.4-10.4); Platelet Count 111 10x3/uL (130-400); RBC Distribution Width 14.3 % (11.5-14.5); Red Blood Cell (RBC) Count 3.38 mill/uL (4.20-5.40)
[2023-12-12 06:28] LABS: ALT (SGPT) 23 U/L (8-55); AST (SGOT) 29 U/L (5-34); Albumin 2.1 g/dL (3.5-5.0); Alkaline Phosphatase 116 U/L (40-110); Anion Gap 13 mmol/L (10-20); BUN (Urea Nitrogen) 11 mg/dL (9.8-20.1); Bilirubin, Total 0.7 mg/dL (0.2-1.2); Calc. Creatinine Clearance 116 mL/min (70-130); Calcium 8.3 mg/dL (7.8-10.44); Carbon Dioxide 19 mmol/L (22-29); Chloride 108 mmol/L (98-107); Estimated GFR 73; Globulin 3.8 g/dL (2.4-3.5); Glucose 230 mg/dL (70-105); Magnesium 1.7 mg/dL (1.6-2.6); Potassium 4.7 mmol/L (3.5-5.1); Protein, Total 5.9 g/dL (6.0-8.3); Sodium 135 mmol/L (136-145)
[2023-12-12] MEDS: Montelukast Sodium 10 mg Tablet PO SCH (08:51)
[2023-12-12] MEDS: Loratadine 10 MG TAB PO SCH (08:51)
[2023-12-12] MEDS: Prazosin HCl 1 MG CAP PO SCH (08:53)
[2023-12-12] MEDS ORDERED: Non-Formulary Item 1 EACH (Fluticasone/Umeclidin/Vilanter [Trelegy Ellipta 200-62.5-25] 1 SCH (09:00)
[2023-12-12] MEDS ORDERED: Enoxaparin 40 MG (0.4 mL) SYRINGE SC SCH (09:00)
[2023-12-12] MEDS ORDERED: Non-Formulary Item 1 EACH (Insulin Nph Hum/Reg Insulin Hm [Novolin 70-30 Flexpen] 100 UNI SQ SCH (09:00)
[2023-12-12] MEDS: HYDROcodone/Acetaminophen 10/325 mg Tablet PO PRN (10:23)
[2023-12-12] MEDS: Ibuprofen 600 MG TAB PO SCH (10:24)
[2023-12-12] MEDS: HumuLIN 70/30 100 Unit/ml 10 ml Vial SC SCH (11:32)
[2023-12-12] MEDS: Ipratropium/Albuterol 3 ML NEB NEB SCH (12:20)
[2023-12-12 13:40] LABS: Bilirubin Negative (Negative); Blood, Urine 1+ (Negative); CAUTI Indications for Culture Spinal Cord Injury; Clarity Turbid (Clear); Glucose, Urine (Dipstick) 50 mg/dL (Negative); Ketone, Urine Negative (Negative); Leukocyte 25 Leu/uL (Negative); Nitrite Negative (Negative); Protein, Urine (Dipstick) 300 mg/dL (Neg-Trace); Specific Gravity, Urine 1.022 (1.002-1.036); Squamous Epithelial 0-3 HPF (0-3); pH, Urine 6.5 (5.0-9.0)
[2023-12-12 13:41] LABS: Bacteria/HPF 1+ HPF (None Seen)
[2023-12-12 13:42] LABS: Urine Culture Reflex No No
[2023-12-12] MEDS: Mometasone 100 MCG HFA INHALER (RT USE) INH SCH (19:28)
[2023-12-12] MEDS: Ciprofloxacin 500 MG TAB PO SCH (21:16)
[2023-12-12] MEDS: Aripiprazole 15 MG TAB PO SCH (21:17)
[2023-12-13] MEDS: Enoxaparin 40 MG (0.4 mL) SYRINGE SC SCH (06:19)
[2023-12-13 06:26] LABS: #Basophils 0.04 10x3/uL (0.0-0.2); %Basophils 0.7 % (0.0-1.0); %Eosinophils 4.7 % (0.0-10.0); %Lymphocytes 21.8 % (21.0-51.0); %Monocytes 9.3 % (0.0-10.0); %Neutrophils 63.1 % (42.0-75.0); Hematocrit 28.6 % (36.0-47.0); Hemoglobin 9.2 g/dL (12.0-16.0); Mean Corpuscular HGB CONC 32.2 g/dL (32.0-36.0); Mean Corpuscular Hemoglobin 27.7 pg (27.0-31.0); Mean Corpuscular Volume 86.1 fL (78.0-98.0); Platelet Count 97 10x3/uL (130-400); RBC Distribution Width 14.2 % (11.5-14.5); Red Blood Cell (RBC) Count 3.32 mill/uL (4.20-5.40)
[2023-12-13] MEDS: HumuLIN 70/30 100 Unit/ml 10 ml Vial SC SCH (20:22)
[2023-12-14] MEDS: Enoxaparin 40 MG (0.4 mL) SYRINGE SC SCH (09:43)
[2023-12-14] MEDS: Polyethylene Glycol 3350 17 GM Packet PO SCH (10:18)
[2023-12-14 16:12] VITALS: BP 145/77; TEMP 98.2
[2023-12-15] MEDS ORDERED: Naloxegol 12.5 MG TAB PO SCH (07:30)
== END 2023-12-14 18:23 | DRG 184 ==
LOC: ERS 19:20 → ERHOLD 22:37 → IMCU/EMU 12-09 05:14 → SURG A 12-10 14:02
PROVIDERS: ADMIT Specialist; ATTEND Specialist
DX: S22.43XA Multiple fractures of ribs, bilateral, initial encounter for closed fracture (principal); K56.7 Ileus, unspecified; S32.038A Other fracture of third lumbar vertebra, initial encounter for closed fracture; S32.048A Other fracture of fourth lumbar vertebra, initial encounter for closed fracture; S32.10XA Unspecified fracture of sacrum, initial encounter for closed fracture; S32.011A Stable burst fracture of first lumbar vertebra, initial encounter for closed fracture; S32.021A Stable burst fracture of second lumbar vertebra, initial encounter for closed fracture; S32.592A Other specified fracture of left pubis, initial encounter for closed fracture; Z68.41 Body mass index [BMI] 40.0-44.9, adult; I10 Essential (primary) hypertension; E78.5 Hyperlipidemia, unspecified; Z88.2 Allergy status to sulfonamides; Z88.8 Allergy status to other drugs, medicaments and biological substances; Z79.51 Long term (current) use of inhaled steroids; Z79.899 Other long term (current) drug therapy; Z79.4 Long term (current) use of insulin; E66.9 Obesity, unspecified; F15.10 Other stimulant abuse, uncomplicated; K74.60 Unspecified cirrhosis of liver; E87.6 Hypokalemia; E11.40 Type 2 diabetes mellitus with diabetic neuropathy, unspecified; E03.9 Hypothyroidism, unspecified; G47.30 Sleep apnea, unspecified; R33.9 Retention of urine, unspecified; V89.2XXA Person injured in unspecified motor-vehicle accident, traffic, initial encounter
CPT/HCPCS: 36415; 36416; 51702; 70450; 71045; 71260; 72100; 72125; 72170; 74177; 80048; 80053; 80076; 80306; 80307; 81001; 83690; 83735; 84100; 84443; 85025; 87086; 90471; 90715; 93005; 93010; 94640; 96361; 96374; 96375; G0390; J0360; J1650; J1815; J2270; J2405; J3475; J3480; J7050; J7120; J7620

== ENCOUNTER 2024-02-11 18:26 | Inpatient (IN) | payer OTHER ==
[2024-02-11 19:31] LABS: #Basophils Less than 0.03 10x3/uL (0.0-0.2); %Basophils 0.2 % (0.0-1.0); %Eosinophils 0.9 % (0.0-10.0); %Lymphocytes 12.1 % (21.0-51.0); %Monocytes 3.9 % (0.0-10.0); %Neutrophils 82.4 % (42.0-75.0); Hematocrit 21.4 % (36.0-47.0); Hemoglobin 7.2 g/dL (12.0-16.0); Mean Corpuscular HGB CONC 33.6 g/dL (32.0-36.0); Mean Corpuscular Hemoglobin 27.7 pg (27.0-31.0); Mean Corpuscular Volume 82.3 fL (78.0-98.0); Mean Platelet Volume 11.8 fL (7.4-10.4); Platelet Count 157 10x3/uL (130-400); RBC Distribution Width 15.5 % (11.5-14.5)
[2024-02-11] MEDS ORDERED: Morphine 4 MG/ML VIAL ONE (19:35)
[2024-02-11] MEDS ORDERED: Ondansetron PF 4 MG/2 ML Vial ONE (19:36)
[2024-02-11 20:15] LABS: ALT (SGPT) 15 U/L (8-55); AST (SGOT) 18 U/L (5-34); Albumin 2.4 g/dL (3.5-5.0); Alkaline Phosphatase 122 U/L (40-110); Anion Gap 12 mmol/L (10-20); BUN (Urea Nitrogen) 34 mg/dL (9.8-20.1); Bilirubin, Total 0.3 mg/dL (0.2-1.2); Calc. Creatinine Clearance 0 mL/min (70-130); Calcium 8.7 mg/dL (7.8-10.44); Carbon Dioxide 18 mmol/L (22-29); Chloride 111 mmol/L (98-107); Estimated GFR 64; Globulin 3.4 g/dL (2.4-3.5); Glucose 251 mg/dL (70-105); Lipase 37 U/L (8-78); Magnesium 1.8 mg/dL (1.6-2.6); Potassium 2.9 mmol/L (3.5-5.1); Protein, Total 5.8 g/dL (6.0-8.3); Sodium 138 mmol/L (136-145)
[2024-02-11] MEDS ORDERED: Potassium Chloride 20 MEQ TAB ONE (21:29)
[2024-02-11 21:39] LABS: Bacteria/HPF None Seen HPF (None Seen); Bilirubin Negative (Negative); Blood, Urine Negative (Negative); CAUTI Indications for Culture Spinal Cord Injury; Clarity Clear (Clear); Glucose, Urine (Dipstick) Normal (Negative); Ketone, Urine Negative (Negative); Leukocyte Negative Leu/uL (Negative); Nitrite Negative (Negative); Protein, Urine (Dipstick) 50 mg/dL (Neg-Trace); RBC/HPF 0-3 HPF (0-3); Specific Gravity, Urine 1.036 (1.002-1.036); Squamous Epithelial None Seen HPF (0-3); Urobilinogen Normal mg/dL (Less than 2); WBC/HPF 0-3 HPF (0-3)
[2024-02-11 21:42] LABS: Urine Culture Reflex No No
[2024-02-11] MEDS ORDERED: Acetaminophen 650 MG Suppository PR PRN (23:37)
[2024-02-11] MEDS ORDERED: Nicotine 14 MG PATCH TD PRN (23:37)
[2024-02-11] MEDS ORDERED: Albuterol 200 PUFF (6.7GM INHALER) INH PRN (23:45)
[2024-02-12 00:17] LABS: Amphetamine Detected (NotDetected); Barbiturates Screen Not Detected (NotDetected); Benzodiazepine Screen Detected (NotDetected); Cocaine Metabolite Screen Not Detected (NotDetected); Methadone Not Detected (NotDetected); Methamphetamine Detected (NotDetected); Opiate Screen Detected (NotDetected); Oxycodone Screen Not Detected (NotDetected); Phencyclidine (PCP) Not Detected (NotDetected); THC/Cannabinoid Screen Not Detected (NotDetected); Tricyclic Screen Not Detected (NotDetected)
[2024-02-12] MEDS: Ipratropium/Albuterol 3 ML NEB NEB SCH (01:18)
[2024-02-12] MEDS ORDERED: Ondansetron PF 4 MG/2 ML Vial ONE ×2 (02:45→11:48)
[2024-02-12] MEDS: Ondansetron PF 4 MG/2 ML Vial IVP PRN (02:54)
[2024-02-12] MEDS: oxyCODONE 5 MG TAB PO PRN ×2 (03:04→20:17)
[2024-02-12 03:07] VITALS: BMI 38.2
[2024-02-12] MEDS: Acetaminophen 325 MG TAB PO SCH (03:11)
[2024-02-12] MEDS ORDERED: Ondansetron ODT 4 MG TAB ONE ×2 (04:49→14:38)
[2024-02-12] MEDS: Ondansetron ODT 4 MG TAB PO PRN (04:54)
[2024-02-12 04:56] LABS: #Basophils 0.03 10x3/uL (0.0-0.2); %Basophils 0.3 % (0.0-1.0); %Eosinophils 1.6 % (0.0-10.0); %Lymphocytes 12.4 % (21.0-51.0); %Monocytes 5.7 % (0.0-10.0); %Neutrophils 79.6 % (42.0-75.0); Hematocrit 21.4 % (36.0-47.0); Hemoglobin 7.3 g/dL (12.0-16.0); Mean Corpuscular HGB CONC 34.1 g/dL (32.0-36.0); Mean Corpuscular Hemoglobin 28.3 pg (27.0-31.0); Mean Corpuscular Volume 82.9 fL (78.0-98.0); Mean Platelet Volume 11.1 fL (7.4-10.4); Platelet Count 182 10x3/uL (130-400); RBC Distribution Width 15.7 % (11.5-14.5); Red Blood Cell (RBC) Count 2.58 mill/uL (4.20-5.40)
[2024-02-12 05:12] LABS: Iron 27 ug/dL (50-170); Iron Binding Capacity, Total 204 mcg/dL (265-497)
[2024-02-12 05:13] LABS: ALT (SGPT) 15 U/L (8-55); AST (SGOT) 19 U/L (5-34); Albumin 2.4 g/dL (3.5-5.0); Alkaline Phosphatase 125 U/L (40-110); Anion Gap 13 mmol/L (10-20); BUN (Urea Nitrogen) 26 mg/dL (9.8-20.1); Bilirubin, Total 0.4 mg/dL (0.2-1.2); Calc. Creatinine Clearance 117 mL/min (70-130); Calcium 8.8 mg/dL (7.8-10.44); Carbon Dioxide 18 mmol/L (22-29); Chloride 111 mmol/L (98-107); Estimated GFR 77; Globulin 3.6 g/dL (2.4-3.5); Glucose 176 mg/dL (70-105); Potassium 2.9 mmol/L (3.5-5.1); Sodium 139 mmol/L (136-145)
[2024-02-12] MEDS ORDERED: Ipratropium/Albuterol 3 ML NEB ONE (08:01)
[2024-02-12] MEDS: Mometasone 100 MCG HFA INHALER (RT USE) INH SCH (08:02)
[2024-02-12] MEDS ORDERED: Potassium Chloride 20 MEQ (100 mL) BAG ONE ×2 (08:54→11:48)
[2024-02-12] MEDS ORDERED: Aspirin 81 mg Enteric Coated Tablet ONE (08:57)
[2024-02-12] MEDS ORDERED: Enoxaparin 40 MG (0.4 mL) SYRINGE ONE (08:58)
[2024-02-12] MEDS ORDERED: Gabapentin 400 MG CAP ONE ×2 (08:58→14:38)
[2024-02-12] MEDS ORDERED: Pantoprazole DR 40 MG TAB ONE (09:02)
[2024-02-12] MEDS ORDERED: Polyethylene Glycol 3350 17 GM Packet ONE (09:03)
[2024-02-12] MEDS ORDERED: Loratadine 10 MG TAB ONE (09:03)
[2024-02-12] MEDS ORDERED: Senokot S 8.6-50 MG TAB ONE (09:03)
[2024-02-12] MEDS ORDERED: Lidocaine 4% Patch ONE (09:03)
[2024-02-12] MEDS: Potassium Chloride 20 MEQ in Premix 1 BAG IVPB SCH (09:12)
[2024-02-12] MEDS: Enoxaparin 40 MG (0.4 mL) SYRINGE SC SCH (09:13)
[2024-02-12] MEDS: Promethazine HCl 12.5 MG in Sodium Chloride 0.9% 50 ML IVPB PRN (10:24)
[2024-02-12] MEDS: HumuLIN 70/30 100 Unit/ml 10 ml Vial SC SCH (10:25)
[2024-02-12] MEDS: Lidocaine 4% Patch TP SCH (10:26)
[2024-02-12] MEDS: Magnesium Oxide 400 MG TAB PO SCH (10:27)
[2024-02-12] MEDS: DULoxetine 30 MG CAP PO SCH (10:27)
[2024-02-12] MEDS: Levothyroxine Sodium 25 MCG TAB PO SCH (10:27)
[2024-02-12] MEDS: Prazosin HCl 1 MG CAP PO SCH (10:28)
[2024-02-12] MEDS: Montelukast Sodium 10 mg Tablet PO SCH (10:28)
[2024-02-12] MEDS: Nadolol 40 MG TAB PO SCH (10:28)
[2024-02-12] MEDS: Empagliflozin 25 MG TAB PO SCH (10:28)
[2024-02-12] MEDS: Aspirin 81 mg Enteric Coated Tablet PO SCH (10:29)
[2024-02-12] MEDS: Pantoprazole DR 40 MG TAB PO SCH (10:29)
[2024-02-12] MEDS: Senokot S 8.6-50 MG TAB PO SCH (10:30)
[2024-02-12] MEDS: Gabapentin 400 MG CAP PO SCH (10:30)
[2024-02-12] MEDS: Loratadine 10 MG TAB PO SCH (10:31)
[2024-02-12] MEDS: Polyethylene Glycol 3350 17 GM Packet PO SCH (10:31)
[2024-02-12] MEDS ORDERED: Acetaminophen 325 MG TAB ONE (14:41)
[2024-02-12] MEDS ORDERED: Morphine 2 MG/ML VIAL ONE (14:42)
[2024-02-12] MEDS: Morphine 2 MG/ML VIAL SLOW IVP PRN (14:54)
[2024-02-12] MEDS: Atorvastatin Calcium 40 MG TAB PO SCH (20:16)
[2024-02-12] MEDS: Transdermal Patch Removal TOP SCH (20:18)
[2024-02-12] MEDS: Latanoprost 0.005% Ophth Soln 2.5 ml Bottle EA EYE SCH (20:52)
[2024-02-13 05:44] LABS: #Basophils Less than 0.03 10x3/uL (0.0-0.2); %Basophils 0.2 % (0.0-1.0); %Lymphocytes 17.5 % (21.0-51.0); %Monocytes 4.9 % (0.0-10.0); Hematocrit 21.7 % (36.0-47.0); Hemoglobin 7.1 g/dL (12.0-16.0); Mean Corpuscular HGB CONC 32.7 g/dL (32.0-36.0); Mean Corpuscular Hemoglobin 28.1 pg (27.0-31.0); Mean Corpuscular Volume 85.8 fL (78.0-98.0); Mean Platelet Volume 11.3 fL (7.4-10.4); Platelet Count 157 10x3/uL (130-400); Red Blood Cell (RBC) Count 2.53 mill/uL (4.20-5.40)
[2024-02-13 06:13] LABS: ALT (SGPT) 15 U/L (8-55); AST (SGOT) 22 U/L (5-34); Albumin 2.4 g/dL (3.5-5.0); Alkaline Phosphatase 123 U/L (40-110); Anion Gap 13 mmol/L (10-20); BUN (Urea Nitrogen) 20 mg/dL (9.8-20.1); Bilirubin, Total 0.4 mg/dL (0.2-1.2); Calc. Creatinine Clearance 113 mL/min (70-130); Calcium 8.9 mg/dL (7.8-10.44); Carbon Dioxide 21 mmol/L (22-29); Chloride 108 mmol/L (98-107); Estimated GFR 74; Globulin 3.6 g/dL (2.4-3.5); Glucose 136 mg/dL (70-105); Magnesium 1.9 mg/dL (1.6-2.6); Potassium 3.4 mmol/L (3.5-5.1); Sodium 139 mmol/L (136-145)
[2024-02-13] MEDS: LIRAGLUTIDE 0.6 MG/0.1 ML SC SCH (08:13)
[2024-02-13] MEDS: Potassium Chloride 20 MEQ TAB PO SCH (09:08)
[2024-02-13 13:25] VITALS: BMI 38.2
[2024-02-14 08:38] LABS: #Basophils 0.03 10x3/uL (0.0-0.2); %Basophils 0.4 % (0.0-1.0); %Lymphocytes 23.6 % (21.0-51.0); %Monocytes 7.2 % (0.0-10.0); %Neutrophils 65.4 % (42.0-75.0); Hematocrit 24.8 % (36.0-47.0); Hemoglobin 7.9 g/dL (12.0-16.0); Mean Corpuscular HGB CONC 31.9 g/dL (32.0-36.0); Mean Corpuscular Hemoglobin 28.5 pg (27.0-31.0); Mean Corpuscular Volume 89.5 fL (78.0-98.0); Mean Platelet Volume 10.8 fL (7.4-10.4); Platelet Count 165 10x3/uL (130-400); RBC Distribution Width 16.1 % (11.5-14.5); Red Blood Cell (RBC) Count 2.77 mill/uL (4.20-5.40)
[2024-02-14] MEDS: tiZANidine HCl 4 MG TAB PO PRN (14:46)
[2024-02-15] MEDS ORDERED: Acetaminophen 500 MG TAB PO PRN (09:22)
[2024-02-15] MEDS: Amoxicillin/Potassium Clav 875 MG TAB PO SCH (16:43)
[2024-02-15] MEDS: Acetaminophen 500 MG TAB PO SCH (21:53)
[2024-02-16] MEDS: Amoxicillin/Potassium Clav 875 MG TAB PO SCH (09:54)
[2024-02-17] MEDS: Insulin Lispro 100 UNIT/ML 10 ML VIAL SC PRN (16:02)
[2024-02-17] MEDS: Insulin Glargine 30 UNITS/0.3 ML VIAL SC SCH (16:58)
[2024-02-18] MEDS: Insulin Glargine 30 UNITS/0.3 ML VIAL SC SCH (08:37)
[2024-02-18] MEDS: Ipratropium/Albuterol 3 ML NEB NEB PRN (18:45)
[2024-02-18] MEDS: oxyCODONE 5 MG TAB PO PRN (21:16)
[2024-02-19] MEDS: Insulin Lispro 100 UNIT/ML 10 ML VIAL SC PRN (20:44)
[2024-02-20 08:55] VITALS: TEMP 98.1
[2024-02-20 16:38] VITALS: BP 112/77
== END 2024-02-20 17:10 | DRG 560 ==
LOC: ERS 18:26 → ERHOLD 23:53 → 2NO 02-12 15:34 → T4-B 02-13 17:59
PROVIDERS: ADMIT Student in an Organized Health Care Education/Training Program; ATTEND Hospitalist
DX: S32.011D Stable burst fracture of first lumbar vertebra, subsequent encounter for fracture with routine healing (principal); I13.0 Hypertensive heart and chronic kidney disease with heart failure and stage 1 through stage 4 chronic kidney disease, or unspecified chronic kidney disease; I50.32 Chronic diastolic (congestive) heart failure; S32.021D Stable burst fracture of second lumbar vertebra, subsequent encounter for fracture with routine healing; S32.031D Stable burst fracture of third lumbar vertebra, subsequent encounter for fracture with routine healing; S32.041D Stable burst fracture of fourth lumbar vertebra, subsequent encounter for fracture with routine healing; M48.061 Spinal stenosis, lumbar region without neurogenic claudication; E11.40 Type 2 diabetes mellitus with diabetic neuropathy, unspecified; E11.22 Type 2 diabetes mellitus with diabetic chronic kidney disease; K74.60 Unspecified cirrhosis of liver; J44.9 Chronic obstructive pulmonary disease, unspecified; F31.9 Bipolar disorder, unspecified; F15.10 Other stimulant abuse, uncomplicated; D50.9 Iron deficiency anemia, unspecified; E87.6 Hypokalemia; E78.5 Hyperlipidemia, unspecified; F17.210 Nicotine dependence, cigarettes, uncomplicated; Z90.49 Acquired absence of other specified parts of digestive tract; Z91.148 Patient's other noncompliance with medication regimen for other reason; Z88.2 Allergy status to sulfonamides; Z88.1 Allergy status to other antibiotic agents; G89.4 Chronic pain syndrome; N61.0 Mastitis without abscess; Z71.51 Drug abuse counseling and surveillance of drug abuser; N18.9 Chronic kidney disease, unspecified
CPT/HCPCS: 36415; 36416; 36430; 51702; 71260; 74177; 80053; 80306; 81001; 83540; 83550; 83605; 83690; 83735; 85025; 86850; 86900; 86901; 87070; 87077; 87205; 94640; 94664; 96374; 96375; 97139; J1650; J1815; J2272; J2405; J2550; J3480; J7620; P9016; Q0162; Q9967

== ENCOUNTER 2024-03-22 14:43 | Inpatient (IN) | payer OTHER ==
[2024-03-22 15:47] LABS: #Basophils Less than 0.03 10x3/uL (0.0-0.2); %Basophils 0.5 % (0.0-1.0); %Eosinophils 4.8 % (0.0-10.0); %Lymphocytes 19.1 % (21.0-51.0); %Monocytes 7.5 % (0.0-10.0); %Neutrophils 67.9 % (42.0-75.0); Hematocrit 25.2 % (36.0-47.0); Hemoglobin 7.9 g/dL (12.0-16.0); Mean Corpuscular HGB CONC 31.3 g/dL (32.0-36.0); Mean Corpuscular Hemoglobin 26.4 pg (27.0-31.0); Mean Corpuscular Volume 84.3 fL (78.0-98.0); Mean Platelet Volume 10.3 fL (7.4-10.4); Platelet Count 161 10x3/uL (130-400); RBC Distribution Width 16.1 % (11.5-14.5); Red Blood Cell (RBC) Count 2.99 mill/uL (4.20-5.40)
[2024-03-22 16:16] LABS: ALT (SGPT) 52 U/L (8-55); AST (SGOT) 75 U/L (5-34); Albumin 2.9 g/dL (3.5-5.0); Alkaline Phosphatase 220 U/L (40-110); Anion Gap 12 mmol/L (10-20); BUN (Urea Nitrogen) 15 mg/dL (9.8-20.1); Bilirubin, Total 0.4 mg/dL (0.2-1.2); Calc. Creatinine Clearance 0 mL/min (70-130); Carbon Dioxide 25 mmol/L (22-29); Chloride 106 mmol/L (98-107); Estimated GFR 49; Globulin 3.9 g/dL (2.4-3.5); Glucose 239 mg/dL (70-105); Lipase 21 U/L (8-78); Potassium 4.3 mmol/L (3.5-5.1); Protein, Total 6.8 g/dL (6.0-8.3); Sodium 139 mmol/L (136-145)
[2024-03-22 16:19] LABS: Troponin I Less than 0.010 ng/mL (< 0.028)
[2024-03-22 17:19] LABS: Bacteria/HPF None Seen HPF (None Seen); Bilirubin Negative (Negative); Blood, Urine Negative (Negative); CAUTI Indications for Culture Dysuria,urgency,freq; Clarity Clear (Clear); Glucose, Urine (Dipstick) Greater than 1000 mg/dL (Negative); Ketone, Urine Negative (Negative); Leukocyte Negative Leu/uL (Negative); Nitrite Negative (Negative); Protein, Urine (Dipstick) 30 mg/dL (Neg-Trace); RBC/HPF 0-3 HPF (0-3); Specific Gravity, Urine 1.017 (1.002-1.036); Urobilinogen Normal mg/dL (Less than 2); WBC/HPF 0-3 HPF (0-3)
[2024-03-22 17:20] LABS: Urine Culture Reflex No No
[2024-03-22] MEDS ORDERED: Ondansetron ODT 4 MG TAB PO PRN (21:25)
[2024-03-22] MEDS ORDERED: hydrALAZINE 20 MG/ML VIAL SLOW IVP PRN (21:25)
[2024-03-22] MEDS ORDERED: Ondansetron PF 4 MG/2 ML Vial IVP PRN (21:25)
[2024-03-22] MEDS ORDERED: Dextrose 50% Abboject 50 ML SYRINGE SLOW IVP PRN (21:25)
[2024-03-22] MEDS ORDERED: Dextrose 5% in Water 1,000 ML IV PRN (21:25)
[2024-03-22] MEDS ORDERED: Glucagon 1 MG/ML KIT IM PRN (21:25)
[2024-03-22] MEDS: Ipratropium/Albuterol 3 ML NEB NEB SCH (22:00)
[2024-03-22] MEDS ORDERED: Morphine 4 MG/ML VIAL ONE (22:54)
[2024-03-23] MEDS: oxyCODONE 5 MG TAB PO PRN (01:23)
[2024-03-23] MEDS: tiZANidine HCl 4 MG TAB PO PRN (01:23)
[2024-03-23] MEDS: Nicotine 14 MG PATCH TD PRN (01:25)
[2024-03-23] MEDS: Insulin Lispro 100 UNIT/ML 10 ML VIAL SC PRN ×2 (01:28→09:29)
[2024-03-23] MEDS: Sodium Chloride 0.9% 500 ML IV SCH (01:31)
[2024-03-23 03:29] VITALS: BMI 86.0
[2024-03-23] MEDS: Acetaminophen 325 MG TAB PO PRN (04:57)
[2024-03-23 05:15] LABS: Cardiac Risk 2.1 (Less than 4.5)
[2024-03-23] MEDS: Ipratropium/Albuterol 3 ML NEB NEB SCH (07:01)
[2024-03-23] MEDS: Mometasone 100 MCG HFA INHALER (RT USE) INH SCH (07:05)
[2024-03-23] MEDS: Gabapentin 400 MG CAP PO SCH (09:23)
[2024-03-23] MEDS: FLU (Fluarix Triv) TS24-25(6MOS UP)/PF 45 MCG/0.5 ML Syringe IM ONE (09:24)
[2024-03-23] MEDS: Aspirin 81 mg Enteric Coated Tablet PO SCH (09:24)
[2024-03-23] MEDS: DULoxetine 30 MG CAP PO SCH (09:24)
[2024-03-23] MEDS: Morphine 4 MG/ML VIAL SLOW IVP SCH (12:45)
[2024-03-23] MEDS: Morphine 4 MG/ML VIAL SLOW IVP PRN (17:58)
[2024-03-23] MEDS: Prazosin HCl 1 MG CAP PO SCH (22:07)
[2024-03-23] MEDS: Atorvastatin Calcium 40 MG TAB PO SCH (22:12)
[2024-03-23] MEDS: Nortriptyline HCl 25 MG CAP PO SCH (22:12)
[2024-03-23] MEDS: Senokot S 8.6-50 MG TAB PO SCH (22:12)
[2024-03-23] MEDS: Montelukast Sodium 10 mg Tablet PO SCH (22:13)
[2024-03-23] MEDS: Pantoprazole DR 40 MG TAB PO SCH (22:13)
[2024-03-23] MEDS: Latanoprost 0.005% Ophth Soln 2.5 ml Bottle EA EYE SCH (22:14)
[2024-03-23] MEDS: Ibuprofen 800 MG TAB PO PRN (22:14)
[2024-03-23] MEDS: Nicotine 21 MG PATCH TD SCH ×2 (22:15→22:16)
[2024-03-23] MEDS: Polyethylene Glycol 3350 17 GM Packet PO SCH (22:15)
[2024-03-24 05:10] LABS: #Basophils 0.03 10x3/uL (0.0-0.2); %Basophils 0.6 % (0.0-1.0); %Eosinophils 4.2 % (0.0-10.0); %Lymphocytes 20.5 % (21.0-51.0); %Monocytes 9.9 % (0.0-10.0); %Neutrophils 64.6 % (42.0-75.0); Hematocrit 29.5 % (36.0-47.0); Mean Corpuscular HGB CONC 30.5 g/dL (32.0-36.0); Mean Corpuscular Hemoglobin 25.9 pg (27.0-31.0); Mean Corpuscular Volume 84.8 fL (78.0-98.0); Platelet Count 165 10x3/uL (130-400); Red Blood Cell (RBC) Count 3.48 mill/uL (4.20-5.40)
[2024-03-24 05:36] LABS: ALT (SGPT) 56 U/L (8-55); AST (SGOT) 82 U/L (5-34); Albumin 3.2 g/dL (3.5-5.0); Alkaline Phosphatase 240 U/L (40-110); Anion Gap 16 mmol/L (10-20); BUN (Urea Nitrogen) 17 mg/dL (9.8-20.1); Bilirubin, Total 0.4 mg/dL (0.2-1.2); Calc. Creatinine Clearance 185 mL/min (70-130); Calcium 9.2 mg/dL (7.8-10.44); Carbon Dioxide 22 mmol/L (22-29); Chloride 102 mmol/L (98-107); Estimated GFR 50; Globulin 4.2 g/dL (2.4-3.5); Glucose 207 mg/dL (70-105); Protein, Total 7.4 g/dL (6.0-8.3); Sodium 136 mmol/L (136-145)
[2024-03-24] MEDS ORDERED: Spironolactone 100 MG TAB PO SCH (09:00)
[2024-03-24] MEDS: Nadolol 40 MG TAB PO SCH (09:11)
[2024-03-24] MEDS: Loratadine 10 MG TAB PO SCH (09:12)
[2024-03-24] MEDS: Spironolactone 25 MG TAB PO SCH (09:12)
[2024-03-24] MEDS: Levothyroxine Sodium 25 MCG TAB PO SCH (09:12)
[2024-03-24] MEDS: Pantoprazole DR 40 MG TAB PO SCH (09:12)
[2024-03-24] MEDS: Empagliflozin 25 MG TAB PO SCH (09:13)
[2024-03-24] MEDS: Polyethylene Glycol 3350 17 GM Packet PO SCH (09:13)
[2024-03-24] MEDS: Insulin Glargine 30 UNITS/0.3 ML VIAL SC SCH (09:13)
[2024-03-24 12:18] VITALS: TEMP 97.4
[2024-03-24 15:27] VITALS: BP 107/65
== END 2024-03-24 16:38 | disposition home or self-care (01) | DRG 92 ==
LOC: ERS 14:43 → 2SE 20:44 → OBSVTOIN 03-23 19:06
PROVIDERS: ADMIT Internal Medicine; ATTEND Family Medicine
DX: G89.4 Chronic pain syndrome (principal); I13.0 Hypertensive heart and chronic kidney disease with heart failure and stage 1 through stage 4 chronic kidney disease, or unspecified chronic kidney disease; K92.1 Melena; I50.32 Chronic diastolic (congestive) heart failure; Z68.45 Body mass index [BMI] 70 or greater, adult; N17.9 Acute kidney failure, unspecified; D64.9 Anemia, unspecified; F31.9 Bipolar disorder, unspecified; J44.9 Chronic obstructive pulmonary disease, unspecified; Z88.1 Allergy status to other antibiotic agents; Z88.2 Allergy status to sulfonamides; Z90.49 Acquired absence of other specified parts of digestive tract; E66.01 Morbid (severe) obesity due to excess calories; E11.65 Type 2 diabetes mellitus with hyperglycemia; N18.2 Chronic kidney disease, stage 2 (mild); E11.22 Type 2 diabetes mellitus with diabetic chronic kidney disease; M62.830 Muscle spasm of back; S32.011D Stable burst fracture of first lumbar vertebra, subsequent encounter for fracture with routine healing; S32.021D Stable burst fracture of second lumbar vertebra, subsequent encounter for fracture with routine healing; V89.2XXD Person injured in unspecified motor-vehicle accident, traffic, subsequent encounter
CPT/HCPCS: 36415; 36416; 70450; 70551; 71045; 71275; 72125; 74174; 80053; 80061; 81001; 82274; 83690; 83880; 84443; 84484; 85025; 86141; 90656; 93005; 94640; 94664; 96374; 96376; G0378; J1815; J2272; J7030; J7620

== ENCOUNTER 2024-05-23 15:11 | Emergency (ER) | payer OTHER ==
[2024-05-23] MEDS ORDERED: Nitroglycerin 0.4 MG TAB 1 EACH ONE ×2 (15:35→16:03)
[2024-05-23 16:39] LABS: ALT (SGPT) 24 U/L (8-55); AST (SGOT) 33 U/L (5-34); Albumin 3.3 g/dL (3.5-5.0); Alkaline Phosphatase 178 U/L (40-110); Anion Gap 15 mmol/L (10-20); BUN (Urea Nitrogen) 16 mg/dL (9.8-20.1); Bilirubin, Total 0.4 mg/dL (0.2-1.2); Calc. Creatinine Clearance 0 mL/min (70-130); Calcium 8.7 mg/dL (7.8-10.44); Carbon Dioxide 19 mmol/L (22-29); Chloride 104 mmol/L (98-107); Estimated GFR 48; Globulin 3.9 g/dL (2.4-3.5); Glucose 267 mg/dL (70-105); Potassium 4.6 mmol/L (3.5-5.1); Protein, Total 7.2 g/dL (6.0-8.3); Sodium 133 mmol/L (136-145)
[2024-05-23 16:41] LABS: Troponin I 0.012 ng/mL (< 0.028)
[2024-05-23 17:01] LABS: #Basophils Less than 0.03 10x3/uL (0.0-0.2); %Basophils 0.3 % (0.0-1.0); %Eosinophils 3.5 % (0.0-10.0); %Lymphocytes 21.4 % (21.0-51.0); %Monocytes 7.3 % (0.0-10.0); %Neutrophils 67.1 % (42.0-75.0); Hematocrit 30.5 % (36.0-47.0); Hemoglobin 9.5 g/dL (12.0-16.0); Mean Corpuscular HGB CONC 31.1 g/dL (32.0-36.0); Mean Corpuscular Hemoglobin 23.9 pg (27.0-31.0); Mean Corpuscular Volume 76.6 fL (78.0-98.0); Platelet Count 173 10x3/uL (130-400); RBC Distribution Width 16.5 % (11.5-14.5); Red Blood Cell (RBC) Count 3.98 mill/uL (4.20-5.40)
[2024-05-23 17:14] LABS: INR-International Normal Ratio 1.1; Prothrombin Time 13.8 sec (12.0-14.7)
[2024-05-23] MEDS ORDERED: Morphine 4 MG/ML VIAL ONE (18:06)
[2024-05-23] MEDS ORDERED: HYDROcodone/Acetaminophen 10/325 mg Tablet ONE (19:57)
[2024-05-23 20:25] LABS: Troponin I Less than 0.010 ng/mL (< 0.028)
== END 2024-05-23 23:35 | disposition home or self-care (01) ==
LOC: ERS 15:11
DX: R07.89 Other chest pain (principal); I13.0 Hypertensive heart and chronic kidney disease with heart failure and stage 1 through stage 4 chronic kidney disease, or unspecified chronic kidney disease; E11.22 Type 2 diabetes mellitus with diabetic chronic kidney disease; I50.9 Heart failure, unspecified; N18.9 Chronic kidney disease, unspecified; F17.210 Nicotine dependence, cigarettes, uncomplicated; Z79.4 Long term (current) use of insulin; Z79.84 Long term (current) use of oral hypoglycemic drugs; Z79.899 Other long term (current) drug therapy
CPT/HCPCS: 36415; 71045; 80053; 83880; 84484; 85025; 85610; 86850; 86900; 86901; 93005; 94760; 96374; J2272

== ENCOUNTER 2024-05-25 14:07 | Outpatient (CLI) | payer OTHER | END 2024-05-25 14:08 | disposition home or self-care (01) | LOC: BICULT 14:07 | PROVIDERS: ATTEND Otolaryngology Plastic Surgery within the Head & Neck | DX: E04.1 Nontoxic single thyroid nodule (principal); E07.89 Other specified disorders of thyroid | CPT/HCPCS: 76536 ==

== ENCOUNTER 2024-06-20 13:30 | Outpatient (CLI) | payer OTHER | END 2024-06-20 13:31 | disposition home or self-care (01) | LOC: BICCT 13:30 | PROVIDERS: ATTEND Physician Assistant | DX: S32.030A Wedge compression fracture of third lumbar vertebra, initial encounter for closed fracture (principal); M47.816 Spondylosis without myelopathy or radiculopathy, lumbar region; M43.16 Spondylolisthesis, lumbar region; M40.209 Unspecified kyphosis, site unspecified; S32.021A Stable burst fracture of second lumbar vertebra, initial encounter for closed fracture; M48.062 Spinal stenosis, lumbar region with neurogenic claudication; M84.48XA Pathological fracture, other site, initial encounter for fracture | CPT/HCPCS: 72128; 72131 ==

== ENCOUNTER 2025-01-25 14:38 | Inpatient (IN) | payer OTHER ==
[2025-01-25] MEDS ORDERED: Nitroglycerin 0.4 MG TAB 1 EACH ONE ×2 (15:29→16:41)
[2025-01-25 15:30] LABS: #Basophils 0.04 10x3/uL (0.0-0.2); #Eosinophils 0.15 10x3/uL (0.0-0.7); #Monocytes 0.45 10x3/uL (0.11-0.59); #Neutrophils 4.06 10x3/uL (1.40-6.50); %Basophils 0.7 % (0.0-1.0); %Eosinophils 2.5 % (0.0-10.0); %Lymphocytes 22.1 % (21.0-51.0); %Monocytes 7.4 % (0.0-10.0); %Neutrophils 67.1 % (42.0-75.0); Hematocrit 37.8 % (36.0-47.0); Hemoglobin 12.3 g/dL (12.0-16.0); Mean Corpuscular Hemoglobin 25.9 pg (27.0-31.0); Mean Corpuscular Volume 79.6 fL (78.0-98.0); Platelet Count 133 10x3/uL (130-400); Red Blood Cell (RBC) Count 4.75 mill/uL (4.20-5.40); White Blood Cell (WBC) Count 6.05 10x3/uL (4.8-10.8)
[2025-01-25 15:42] LABS: INR-International Normal Ratio 1.0; Prothrombin Time 13.3 sec (12.0-14.7)
[2025-01-25 15:43] LABS: PTT 27.7 sec (22.9-36.1)
[2025-01-25 15:45] LABS: D-Dimer Test 0.96 mcg/mL (0.27-0.43)
[2025-01-25 15:51] LABS: Actual Bicarbonate (HCO3v) 19.8 mEq/L (22-28); Analyzer IN Cardio ER; Base Excess -4.5 mEq/L (-2.0 to +3.0); Calcium, Ionized (venous) 1.15 mmol/L (1.16-1.32); Chloride (VBG) 99 mmol/L (98-106); Hematocrit-VBG 39 % (36.0-47.0); Hemoglobin (Hb) 13.2 g/dL (11.7-16.0); Potassium (VBG) 4.05 mmol/L (3.70-5.30); Sodium 131 mmol/L (133-146)
[2025-01-25 16:00] LABS: Osmolality, Serum 298 mOsm/kg (275-295)
[2025-01-25 16:18] LABS: ALT (SGPT) 57 U/L (Less than 34); AST (SGOT) 60 U/L (11-34); Albumin 3.1 g/dL (3.1-4.5); Alkaline Phosphatase 242 U/L (40-110); Anion Gap 15 mmol/L (10-20); BUN (Urea Nitrogen) 16 mg/dL (9.8-20.1); Bilirubin, Total 0.8 mg/dL (0.3-1.2); Calc. Creatinine Clearance 0 mL/min (70-130); Calcium 9.7 mg/dL (7.8-10.44); Carbon Dioxide 22 mmol/L (22-29); Chloride 98 mmol/L (98-107); Globulin 4.3 g/dL (2.4-3.5); Glucose 435 mg/dL (70-105); Lipase 102 U/L (8-78); Potassium 3.9 mmol/L (3.5-5.1); Sodium 131 mmol/L (136-145)
[2025-01-25 17:00] LABS: CAUTI Indications for Culture Dysuria,urgency,freq; Glucose, Urine (Dipstick) Greater than 1000 mg/dL (Negative); Leukocyte Negative Leu/uL (Negative); Protein, Urine (Dipstick) 300 mg/dL (Neg-Trace); Specific Gravity, Urine 1.032 (1.002-1.036); WBC/HPF 0-3 HPF (0-3); Yeast-Budding 2+ HPF (None Seen)
[2025-01-25 17:07] LABS: Bacteria/HPF 1+ HPF (None Seen)
[2025-01-25 17:08] LABS: Urine Culture Reflex No No
[2025-01-25] MEDS ORDERED: Aspirin Chewable 81 MG TAB ONE (19:58)
[2025-01-25] MEDS ORDERED: niCARdipine 40MG In NaCl 40 MG/200 ML BAG IVPB SCH (21:00)
[2025-01-25] MEDS ORDERED: niCARdipine 25 MG in Sodium Chloride 0.9% 250 ML 250 ML IVPB SCH (21:00)
[2025-01-25] MEDS ORDERED: niCARdipine 25 MG/10 ML SDV ONE (21:10)
[2025-01-25] MEDS ORDERED: niCARdipine 50 MG, Admixture Fee 1 EACH in Sodium Chloride 0.9% 250 ML 230 ML IV SCH (21:15)
[2025-01-25] MEDS ORDERED: Non-Formulary Item 1 EACH (Fluticasone/Umeclidin/Vilanter [Trelegy Ellipta 200-62.5-25] 1 SCH (21:15)
[2025-01-25] MEDS ORDERED: Calcium Carbonate 500 MG ChewTAB PO PRN (21:18)
[2025-01-25] MEDS ORDERED: Ondansetron PF 4 MG/2 ML Vial IVP PRN (21:18)
[2025-01-25] MEDS ORDERED: Glucagon 1 MG/ML KIT IM PRN (21:21)
[2025-01-25] MEDS ORDERED: Dextrose 50% Abboject 50 ML SYRINGE SLOW IVP PRN (21:21)
[2025-01-25] MEDS ORDERED: NALOXONE HCL 4 MG NS PRN (21:23)
[2025-01-25 22:08] VITALS: BMI 35.7
[2025-01-25] MEDS: Furosemide 40 MG (4 mL) VIAL SLOW IVP SCH (22:56)
[2025-01-26] MEDS: HYDROcodone/Acetaminophen 7.5/325 mg Tablet PO PRN (00:42)
[2025-01-26 04:30] LABS: #Basophils 0.04 10x3/uL (0.0-0.2); #Eosinophils 0.09 10x3/uL (0.0-0.7); #Monocytes 0.52 10x3/uL (0.11-0.59); #Neutrophils 5.10 10x3/uL (1.40-6.50); %Basophils 0.6 % (0.0-1.0); %Eosinophils 1.3 % (0.0-10.0); %Lymphocytes 17.9 % (21.0-51.0); %Monocytes 7.4 % (0.0-10.0); %Neutrophils 72.5 % (42.0-75.0); Hematocrit 35.5 % (36.0-47.0); Hemoglobin 11.6 g/dL (12.0-16.0); Mean Corpuscular Hemoglobin 26.3 pg (27.0-31.0); Mean Corpuscular Volume 80.5 fL (78.0-98.0); Platelet Count 139 10x3/uL (130-400); Red Blood Cell (RBC) Count 4.41 mill/uL (4.20-5.40); White Blood Cell (WBC) Count 7.03 10x3/uL (4.8-10.8)
[2025-01-26 05:01] LABS: ALT (SGPT) 48 U/L (Less than 34); AST (SGOT) 42 U/L (11-34); Albumin 2.9 g/dL (3.1-4.5); Alkaline Phosphatase 220 U/L (40-110); Anion Gap 13 mmol/L (10-20); BUN (Urea Nitrogen) 19 mg/dL (9.8-20.1); Bilirubin, Total 0.6 mg/dL (0.3-1.2); Calc. Creatinine Clearance 54 mL/min (70-130); Calcium 9.3 mg/dL (7.8-10.44); Carbon Dioxide 25 mmol/L (22-29); Chloride 94 mmol/L (98-107); Globulin 4.1 g/dL (2.4-3.5); Glucose 704 mg/dL (70-105); Potassium 4.0 mmol/L (3.5-5.1); Sodium 128 mmol/L (136-145)
[2025-01-26] MEDS: Mometasone 100 MCG HFA INHALER (RT USE) INH SCH (07:10)
[2025-01-26] MEDS ORDERED: Finerenone [Kerendia] 20 MG Tablet PO SCH (09:00)
[2025-01-26] MEDS ORDERED: Pantoprazole 40 MG DR.TAB PO SCH (09:00)
[2025-01-26] MEDS: Insulin Glargine 30 UNITS/0.3 ML VIAL SC SCH ×3 (10:26→21:09)
[2025-01-26 10:52] LABS: Anion Gap 14 mmol/L (10-20); BUN (Urea Nitrogen) 18 mg/dL (9.8-20.1); Calc. Creatinine Clearance 53 mL/min (70-130); Calcium 8.8 mg/dL (7.8-10.44); Carbon Dioxide 22 mmol/L (22-29); Chloride 96 mmol/L (98-107); Glucose 571 mg/dL (70-105); Glucose POC Confirmation 571 mg/dL (70-105); Potassium 3.9 mmol/L (3.5-5.1); Sodium 128 mmol/L (136-145)
[2025-01-26 11:29] LABS: Cocaine Metabolite Screen Negative (Negative); THC/Cannabinoid Screen Negative (Negative); Tricyclic Screen Negative (Negative)
[2025-01-26] MEDS: Aspirin Chewable 81 MG TAB PO SCH (15:48)
[2025-01-26] MEDS: DULoxetine 30 MG CAP PO SCH (15:48)
[2025-01-26] MEDS: NIFEdipine XL 30 MG ER.TAB PO SCH (15:49)
[2025-01-26] MEDS: Lisinopril 10 MG TAB PO SCH (15:49)
[2025-01-26] MEDS: lamoTRIgine 100 MG TAB PO SCH (15:49)
[2025-01-26] MEDS: Gabapentin 400 MG CAP PO SCH (15:51)
[2025-01-26] MEDS: Heparin 5,000 UNITS/ML VIAL SC SCH (15:51)
[2025-01-26] MEDS: Pantoprazole 40 MG VIAL IVP SCH (15:53)
[2025-01-26] MEDS: Nadolol 40 MG TAB PO SCH (15:55)
[2025-01-26] MEDS: Acetaminophen 325 MG TAB PO PRN (16:28)
[2025-01-26] MEDS: hydrALAZINE 20 MG/ML VIAL SLOW IVP PRN (18:11)
[2025-01-27] MEDS: cloNIDine 0.1 MG TAB PO PRN (01:59)
[2025-01-27 06:01] LABS: #Basophils 0.04 10x3/uL (0.0-0.2); #Eosinophils 0.19 10x3/uL (0.0-0.7); #Monocytes 0.39 10x3/uL (0.11-0.59); #Neutrophils 6.76 10x3/uL (1.40-6.50); %Basophils 0.5 % (0.0-1.0); %Eosinophils 2.3 % (0.0-10.0); %Lymphocytes 11.1 % (21.0-51.0); %Monocytes 4.7 % (0.0-10.0); %Neutrophils 81.2 % (42.0-75.0); Hematocrit 38.0 % (36.0-47.0); Hemoglobin 12.1 g/dL (12.0-16.0); Mean Corpuscular Hemoglobin 25.9 pg (27.0-31.0); Mean Corpuscular Volume 81.2 fL (78.0-98.0); Platelet Count 155 10x3/uL (130-400); Red Blood Cell (RBC) Count 4.68 mill/uL (4.20-5.40); White Blood Cell (WBC) Count 8.32 10x3/uL (4.8-10.8)
[2025-01-27 06:20] LABS: Anion Gap 14 mmol/L (10-20); BUN (Urea Nitrogen) 16 mg/dL (9.8-20.1); Calc. Creatinine Clearance 62 mL/min (70-130); Calcium 9.6 mg/dL (7.8-10.44); Carbon Dioxide 24 mmol/L (22-29); Chloride 100 mmol/L (98-107); Glucose 365 mg/dL (70-105); Potassium 3.7 mmol/L (3.5-5.1)
[2025-01-27 06:27] LABS: Sodium 134 mmol/L (136-145)
[2025-01-27] MEDS ORDERED: NIFEdipine XL 30 MG ER.TAB PO SCH (09:00)
[2025-01-27] MEDS: Insulin Glargine 30 UNITS/0.3 ML VIAL SC SCH (12:16)
[2025-01-27] MEDS: NIFEdipine XL 60 MG ER.TAB PO SCH (12:17)
[2025-01-28 06:42] LABS: #Basophils 0.04 10x3/uL (0.0-0.2); #Eosinophils 0.27 10x3/uL (0.0-0.7); #Monocytes 0.51 10x3/uL (0.11-0.59); #Neutrophils 3.43 10x3/uL (1.40-6.50); %Basophils 0.7 % (0.0-1.0); %Eosinophils 4.5 % (0.0-10.0); %Lymphocytes 28.4 % (21.0-51.0); %Monocytes 8.6 % (0.0-10.0); %Neutrophils 57.6 % (42.0-75.0); Hematocrit 37.2 % (36.0-47.0); Hemoglobin 11.6 g/dL (12.0-16.0); Mean Corpuscular Hemoglobin 26.0 pg (27.0-31.0); Mean Corpuscular Volume 83.2 fL (78.0-98.0); Platelet Count 167 10x3/uL (130-400); Red Blood Cell (RBC) Count 4.47 mill/uL (4.20-5.40); White Blood Cell (WBC) Count 5.95 10x3/uL (4.8-10.8)
[2025-01-28 07:01] LABS: Anion Gap 13 mmol/L (10-20); BUN (Urea Nitrogen) 21 mg/dL (9.8-20.1); Calc. Creatinine Clearance 48 mL/min (70-130); Calcium 9.4 mg/dL (7.8-10.44); Carbon Dioxide 22 mmol/L (22-29); Chloride 102 mmol/L (98-107); Glucose 393 mg/dL (70-105); Magnesium 2.0 mg/dL (1.6-2.6); Potassium 3.3 mmol/L (3.5-5.1); Sodium 134 mmol/L (136-145)
[2025-01-28] MEDS: Magnesium 2 GM/50 ML(in water) 2 GM in Premix 1 BAG IVPB SCH (08:38)
[2025-01-28] MEDS: Polyvinyl Alcohol 1.4%/Povidone 0.6% Opth Drops EA EYE SCH (20:20)
[2025-01-28] MEDS: Insulin Glargine 30 UNITS/0.3 ML VIAL SC SCH (20:21)
[2025-01-28] MEDS ORDERED: Insulin Glargine 30 UNITS/0.3 ML VIAL SC SCH (21:00)
[2025-01-29 06:20] LABS: ALT (SGPT) 27 U/L (Less than 34); AST (SGOT) 35 U/L (11-34); Albumin 3.0 g/dL (3.1-4.5); Alkaline Phosphatase 191 U/L (40-110); Anion Gap 14 mmol/L (10-20); BUN (Urea Nitrogen) 26 mg/dL (9.8-20.1); Bilirubin, Total 0.2 mg/dL (0.3-1.2); Calc. Creatinine Clearance 44 mL/min (70-130); Calcium 8.9 mg/dL (7.8-10.44); Carbon Dioxide 23 mmol/L (22-29); Chloride 102 mmol/L (98-107); Globulin 3.9 g/dL (2.4-3.5); Glucose 384 mg/dL (70-105); Potassium 3.5 mmol/L (3.5-5.1); Sodium 135 mmol/L (136-145)
[2025-01-29] MEDS: Insulin Glargine 30 UNITS/0.3 ML VIAL SC SCH (09:45)
[2025-01-29] MEDS: Albumin 25% 25 GM (100 mL) BOT IVPB SCH (09:46)
[2025-01-29 10:34] LABS: Sodium, Urine 49.0 mmol/L (Not Available)
[2025-01-30 05:36] LABS: #Basophils 0.05 10x3/uL (0.0-0.2); #Eosinophils 0.19 10x3/uL (0.0-0.7); #Monocytes 0.50 10x3/uL (0.11-0.59); #Neutrophils 2.88 10x3/uL (1.40-6.50); %Basophils 0.9 % (0.0-1.0); %Eosinophils 3.4 % (0.0-10.0); %Lymphocytes 34.7 % (21.0-51.0); %Monocytes 9.0 % (0.0-10.0); %Neutrophils 52.0 % (42.0-75.0); Hematocrit 36.2 % (36.0-47.0); Hemoglobin 11.4 g/dL (12.0-16.0); Mean Corpuscular Hemoglobin 26.1 pg (27.0-31.0); Mean Corpuscular Volume 83.0 fL (78.0-98.0); Platelet Count 145 10x3/uL (130-400); Red Blood Cell (RBC) Count 4.36 mill/uL (4.20-5.40); White Blood Cell (WBC) Count 5.54 10x3/uL (4.8-10.8)
[2025-01-30 05:52] LABS: Anion Gap 20 mmol/L (10-20); BUN (Urea Nitrogen) 23 mg/dL (9.8-20.1); Calc. Creatinine Clearance 53 mL/min (70-130); Calcium 9.5 mg/dL (7.8-10.44); Carbon Dioxide 20 mmol/L (22-29); Chloride 103 mmol/L (98-107); Glucose 280 mg/dL (70-105); Magnesium 2.3 mg/dL (1.6-2.6); Potassium 3.9 mmol/L (3.5-5.1); Sodium 139 mmol/L (136-145)
[2025-01-30] MEDS: Insulin Glargine 30 UNITS/0.3 ML VIAL SC SCH (08:19)
[2025-01-30 11:26] VITALS: BMI 35.6
[2025-01-30 15:47] VITALS: BP 136/80; TEMP 97.7
[2025-01-30] MEDS ORDERED: Insulin Glargine 30 UNITS/0.3 ML VIAL SC SCH (21:00)
== END 2025-01-30 15:30 | disposition home or self-care (01) | DRG 304 ==
LOC: ERS 14:38 → CCU 20:49 → T4-A 01-26 17:42
PROVIDERS: ADMIT Student in an Organized Health Care Education/Training Program; ATTEND Internal Medicine
DX: I16.1 Hypertensive emergency (principal); G92.9 Unspecified toxic encephalopathy; G93.41 Metabolic encephalopathy; S32.021A Stable burst fracture of second lumbar vertebra, initial encounter for closed fracture; E87.1 Hypo-osmolality and hyponatremia; F11.20 Opioid dependence, uncomplicated; N17.9 Acute kidney failure, unspecified; E87.20 Acidosis, unspecified; Z66 Do not resuscitate; I16.0 Hypertensive urgency; I50.9 Heart failure, unspecified; J44.9 Chronic obstructive pulmonary disease, unspecified; K74.60 Unspecified cirrhosis of liver; Z79.899 Other long term (current) drug therapy; E11.22 Type 2 diabetes mellitus with diabetic chronic kidney disease; E11.65 Type 2 diabetes mellitus with hyperglycemia; N18.32 Chronic kidney disease, stage 3b; F31.9 Bipolar disorder, unspecified; G89.4 Chronic pain syndrome; E87.6 Hypokalemia; E66.01 Morbid (severe) obesity due to excess calories; M54.9 Dorsalgia, unspecified
CPT/HCPCS: 36415; 36416; 71045; 71275; 74177; 78452; 80048; 80053; 80306; 81001; 82010; 82570; 82805; 83690; 83735; 83880; 83930; 84300; 84484; 84540; 85025; 85379; 85610; 85730; 93005; 93017; 96374; 96375; A9502; J0360; J1644; J1815; J1940; J2270; J2470; J2785; J3475; J7030; J7120; P9047; Q0162; Q9967

== ENCOUNTER 2025-05-02 09:25 | Inpatient (IN) | payer OTHER, MEDICAID ==
[2025-05-02 09:55] LABS: #Basophils Less than 0.03 10x3/uL (0.0-0.2); #Eosinophils Less than 0.03 10x3/uL (0.0-0.7); #Monocytes 0.59 10x3/uL (0.11-0.59); #Neutrophils 7.40 10x3/uL (1.40-6.50); %Basophils 0.1 % (0.0-1.0); %Eosinophils 0.1 % (0.0-10.0); %Lymphocytes 15.7 % (21.0-51.0); %Monocytes 6.2 % (0.0-10.0); %Neutrophils 77.7 % (42.0-75.0); Hematocrit 34.4 % (36.0-47.0); Hemoglobin 11.7 g/dL (12.0-16.0); Mean Corpuscular Hemoglobin 26.2 pg (27.0-31.0); Mean Corpuscular Volume 77.1 fL (78.0-98.0); Platelet Count 156 10x3/uL (130-400); Red Blood Cell (RBC) Count 4.46 mill/uL (4.20-5.40); White Blood Cell (WBC) Count 9.53 10x3/uL (4.8-10.8)
[2025-05-02] MEDS ORDERED: Nitroglycerin 2% Ointment 1 INCH/1 GM Packet ONE (10:37)
[2025-05-02 10:55] LABS: Lipase 145 U/L (8-78)
[2025-05-02] MEDS ORDERED: Gabapentin 400 MG CAP ONE (11:26)
[2025-05-02 12:24] LABS: Anion Gap 16 mmol/L (10-20); Carbon Dioxide 14 mmol/L (22-29); Chloride 96 mmol/L (98-107); Potassium 3.9 mmol/L (3.5-5.1); Sodium 122 mmol/L (136-145)
[2025-05-02 12:25] LABS: BUN (Urea Nitrogen) 24 mg/dL (9.8-20.1); Calc. Creatinine Clearance 0 mL/min (70-130)
[2025-05-02 12:26] LABS: Glucose 689 mg/dL (70-105)
[2025-05-02 12:27] LABS: ALT (SGPT) 22 U/L (Less than 34); AST (SGOT) 38 U/L (11-34); Albumin 2.7 g/dL (3.1-4.5); Alkaline Phosphatase 194 U/L (40-110); Bilirubin, Total 0.4 mg/dL (0.3-1.2); Calcium 8.6 mg/dL (7.6-10.4); Globulin 4.1 g/dL (2.4-3.5)
[2025-05-02] MEDS ORDERED: Iopamidol-370 76% 500 ML MDV (1 ML CHARGE) ONE (12:50)
[2025-05-02 13:36] LABS: Actual Bicarbonate (HCO3v) 19.3 mEq/L (22-28); Base Excess -4.8 mEq/L (-2.0 to +3.0); Calcium, Ionized (venous) 1.11 mmol/L (1.16-1.32); Chloride (VBG) 96 mmol/L (98-106); Hematocrit-VBG 37 % (36.0-47.0); Hemoglobin (Hb) 12.6 g/dL (11.7-16.0); Potassium (VBG) 3.48 mmol/L (3.70-5.30); Sodium 129 mmol/L (133-146)
[2025-05-02] MEDS ORDERED: Senokot S 8.6-50 MG TAB PO PRN (15:43)
[2025-05-02] MEDS ORDERED: Dextrose 50% Abboject 50 ML SYRINGE SLOW IVP PRN (15:43)
[2025-05-02] MEDS ORDERED: Glucagon 1 MG/ML KIT IM PRN (15:43)
[2025-05-02] MEDS ORDERED: hydrALAZINE 20 MG/ML VIAL SLOW IVP PRN (15:47)
[2025-05-02] MEDS ORDERED: Norepinephrine 8 MG/0.9% NS 250 ML ONE (16:17)
[2025-05-02] MEDS ORDERED: NOREPINEPHRINE 8 MG/250 ML-D5W 250 ML IVPB SCH (17:00)
[2025-05-02] MEDS ORDERED: Norepinephrine 8 MG/0.9% NS 250 ML IVPB SCH (17:30)
[2025-05-02 17:53] LABS: Magnesium 1.9 mg/dL (1.6-2.6)
[2025-05-02] MEDS: Nadolol 40 MG TAB PO SCH (19:24)
[2025-05-02] MEDS: oxyCODONE/Acetaminophen 5 mg/325 mg Tablet PO SCH (19:25)
[2025-05-02] MEDS: NIFEdipine XL 60 MG ER.TAB PO SCH (19:25)
[2025-05-02] MEDS ORDERED: Gabapentin 300 MG CAP PO SCH (21:00)
[2025-05-02] MEDS: HumuLIN 70/30 100 Unit/ml 10 ml Vial SC SCH (22:05)
[2025-05-02] MEDS: Famotidine 20 MG TAB PO SCH (22:13)
[2025-05-02] MEDS: DULoxetine 30 MG CAP PO SCH (22:14)
[2025-05-03 01:17] LABS: CAUTI Indications for Culture Dysuria,urgency,freq; Glucose, Urine (Dipstick) Greater than 1000 mg/dL (Negative); Leukocyte Negative Leu/uL (Negative); Protein, Urine (Dipstick) 600 mg/dL (Neg-Trace); RBC/HPF 0-3 HPF (0-3); Specific Gravity, Urine 1.037 (1.002-1.036)
[2025-05-03 01:22] LABS: Bacteria/HPF 1+ HPF (None Seen)
[2025-05-03 01:23] LABS: Cocaine Metabolite Screen Negative (Negative); THC/Cannabinoid Screen PRELIM POSITIVE (Negative); Tricyclic Screen Negative (Negative); Urine Culture Reflex No No
[2025-05-03 04:50] LABS: #Basophils Less than 0.03 10x3/uL (0.0-0.2); #Eosinophils Less than 0.03 10x3/uL (0.0-0.7); #Monocytes 0.34 10x3/uL (0.11-0.59); #Neutrophils 4.50 10x3/uL (1.40-6.50); %Basophils 0.2 % (0.0-1.0); %Eosinophils 0.2 % (0.0-10.0); %Lymphocytes 14.4 % (21.0-51.0); %Monocytes 6.0 % (0.0-10.0); %Neutrophils 79.0 % (42.0-75.0); Hematocrit 38.3 % (36.0-47.0); Hemoglobin 12.2 g/dL (12.0-16.0); Mean Corpuscular Hemoglobin 26.1 pg (27.0-31.0); Mean Corpuscular Volume 82.0 fL (78.0-98.0); Platelet Count 116 10x3/uL (130-400); Red Blood Cell (RBC) Count 4.67 mill/uL (4.20-5.40); White Blood Cell (WBC) Count 5.69 10x3/uL (4.8-10.8)
[2025-05-03 05:08] LABS: ALT (SGPT) 20 U/L (Less than 34); AST (SGOT) 33 U/L (11-34); Albumin 2.6 g/dL (3.1-4.5); Alkaline Phosphatase 175 U/L (40-110); Anion Gap 14 mmol/L (10-20); BUN (Urea Nitrogen) 20 mg/dL (9.8-20.1); Bilirubin, Total 0.3 mg/dL (0.3-1.2); Calc. Creatinine Clearance 51 mL/min (70-130); Calcium 8.5 mg/dL (7.8-10.44); Carbon Dioxide 19 mmol/L (22-29); Chloride 102 mmol/L (98-107); Globulin 3.7 g/dL (2.4-3.5); Glucose 410 mg/dL (70-105); Lipase 75 U/L (8-78); Potassium 3.3 mmol/L (3.5-5.1); Sodium 132 mmol/L (136-145)
[2025-05-03] MEDS ORDERED: Electrolyte Replacement Protocol 1 EACH FS SCH (05:45)
[2025-05-03] MEDS ORDERED: Magnesium Sulfate In Water 4 GM in Premix 1 BAG IVPB PRN (06:00)
[2025-05-03] MEDS ORDERED: PHOS-NAK 1 PKT PACK PO PRN (06:00)
[2025-05-03] MEDS ORDERED: Potassium Chloride 20 MEQ in Premix 1 BAG IVPB PRN (06:00)
[2025-05-03] MEDS: Ondansetron PF 4 MG/2 ML Vial IVP PRN (08:48)
[2025-05-03] MEDS: Gabapentin 300 MG CAP PO SCH (09:09)
[2025-05-03] MEDS: Ferrous Sulfate 325 MG TAB PO SCH (09:10)
[2025-05-03] MEDS: Aspirin Chewable 81 MG TAB PO SCH (09:10)
[2025-05-03] MEDS: Enoxaparin 40 MG (0.4 mL) SYRINGE SC SCH (09:10)
[2025-05-03] MEDS: Mupirocin 1 GM TUBE NASAL DECOLONIZATION NASAL SCH (09:11)
[2025-05-03] MEDS: NS 0.9% w/ 40 MEQ KCL 1,000 ML IV SCH (14:00)
[2025-05-03] MEDS: HumuLIN 70/30 100 Unit/ml 10 ml Vial SC SCH (16:48)
[2025-05-03] MEDS: NIFEdipine XL 60 MG ER.TAB PO SCH ×2 (18:38→20:21)
[2025-05-03] MEDS: hydrALAZINE 20 MG/ML VIAL SLOW IVP PRN (19:43)
[2025-05-03] MEDS: Famotidine 20 MG TAB PO SCH (20:20)
[2025-05-03 23:03] LABS: Anion Gap 8 mmol/L (10-20); BUN (Urea Nitrogen) 16 mg/dL (9.8-20.1); Calc. Creatinine Clearance 62 mL/min (70-130); Calcium 8.7 mg/dL (7.8-10.44); Carbon Dioxide 18 mmol/L (22-29); Chloride 108 mmol/L (98-107); Glucose 368 mg/dL (70-105); Potassium 5.2 mmol/L (3.5-5.1); Sodium 129 mmol/L (136-145)
[2025-05-04 06:10] VITALS: BMI 36.1
[2025-05-04 13:14] LABS: #Basophils Less than 0.03 10x3/uL (0.0-0.2); #Eosinophils Less than 0.03 10x3/uL (0.0-0.7); #Monocytes 0.33 10x3/uL (0.11-0.59); #Neutrophils 4.43 10x3/uL (1.40-6.50); %Basophils 0.2 % (0.0-1.0); %Eosinophils 0.0 % (0.0-10.0); %Lymphocytes 12.4 % (21.0-51.0); %Monocytes 6.0 % (0.0-10.0); %Neutrophils 81.0 % (42.0-75.0); Hematocrit 42.4 % (36.0-47.0); Hemoglobin 13.3 g/dL (12.0-16.0); Mean Corpuscular Hemoglobin 26.1 pg (27.0-31.0); Mean Corpuscular Volume 83.1 fL (78.0-98.0); Platelet Count 147 10x3/uL (130-400); Red Blood Cell (RBC) Count 5.10 mill/uL (4.20-5.40); White Blood Cell (WBC) Count 5.47 10x3/uL (4.8-10.8)
[2025-05-04 13:35] LABS: Anion Gap 6 mmol/L (10-20); BUN (Urea Nitrogen) 21 mg/dL (9.8-20.1); Calc. Creatinine Clearance 56 mL/min (70-130); Calcium 8.9 mg/dL (7.8-10.44); Carbon Dioxide 20 mmol/L (22-29); Cardiac Risk 5.0 (Less than 4.5); Chloride 107 mmol/L (98-107); Cholesterol 226 mg/dl (< 200 Desired); Glucose 306 mg/dL (70-105); HDL Cholesterol 45 mg/dL (>60 Neg Risk); LDL Cholesterol, Calculated 108 mg/dL; Magnesium 2.1 mg/dL (1.6-2.6); Potassium 4.6 mmol/L (3.5-5.1); Sodium 128 mmol/L (136-145); Triglycerides 363 mg/dL (Less than 150)
[2025-05-04 16:26] LABS: Actual Bicarbonate (HCO3a) 22.3 mEq/L (22-28); Base Excess (BEa) -3.6 mEq/L (-2.0 to +3.0); CO2 Tension 43.7 mmHg (35.0-45.0); Calcium, Ionized (arterial) 1.26 mmol/L (1.12-1.30); Hematocrit-ABG 40 % (36.0-47.0); Hemoglobin (Hb) 13.6 g/dL (12.0-16.0); Potassium - ABG Lab 4.17 mmol/L (3.70-5.30); pH, Arterial 7.326 (7.35-7.45)
[2025-05-04 16:29] LABS: O2 Tension (PaO2), arterial 44.4 mmHg (80.0-100.0); Puncture Site Right Radial artery
[2025-05-04 17:59] LABS: #Basophils Less than 0.03 10x3/uL (0.0-0.2); #Eosinophils Less than 0.03 10x3/uL (0.0-0.7); #Monocytes 0.39 10x3/uL (0.11-0.59); #Neutrophils 4.46 10x3/uL (1.40-6.50); %Basophils 0.2 % (0.0-1.0); %Eosinophils 0.2 % (0.0-10.0); %Lymphocytes 16.8 % (21.0-51.0); %Monocytes 6.6 % (0.0-10.0); %Neutrophils 75.9 % (42.0-75.0); Hematocrit 40.5 % (36.0-47.0); Hemoglobin 12.7 g/dL (12.0-16.0); Mean Corpuscular Hemoglobin 25.7 pg (27.0-31.0); Mean Corpuscular Volume 82.0 fL (78.0-98.0); Platelet Count 149 10x3/uL (130-400); Red Blood Cell (RBC) Count 4.94 mill/uL (4.20-5.40); White Blood Cell (WBC) Count 5.88 10x3/uL (4.8-10.8)
[2025-05-04 18:13] LABS: ALT (SGPT) 35 U/L (Less than 34); AST (SGOT) 74 U/L (11-34); Albumin 2.5 g/dL (3.1-4.5); Alkaline Phosphatase 231 U/L (40-110); Anion Gap 6 mmol/L (10-20); BUN (Urea Nitrogen) 21 mg/dL (9.8-20.1); Bilirubin, Total 0.6 mg/dL (0.3-1.2); Calc. Creatinine Clearance 58 mL/min (70-130); Calcium 9.1 mg/dL (7.8-10.44); Carbon Dioxide 21 mmol/L (22-29); Chloride 108 mmol/L (98-107); Globulin 3.9 g/dL (2.4-3.5); Glucose 238 mg/dL (70-105); Potassium 4.0 mmol/L (3.5-5.1); Sodium 131 mmol/L (136-145)
[2025-05-05 07:35] LABS: #Basophils Less than 0.03 10x3/uL (0.0-0.2); #Eosinophils Less than 0.03 10x3/uL (0.0-0.7); #Monocytes 0.38 10x3/uL (0.11-0.59); #Neutrophils 11.73 10x3/uL (1.40-6.50); %Basophils 0.1 % (0.0-1.0); %Eosinophils 0.0 % (0.0-10.0); %Lymphocytes 6.7 % (21.0-51.0); %Monocytes 2.9 % (0.0-10.0); %Neutrophils 89.9 % (42.0-75.0); Hematocrit 38.3 % (36.0-47.0); Hemoglobin 12.1 g/dL (12.0-16.0); Mean Corpuscular Hemoglobin 25.9 pg (27.0-31.0); Mean Corpuscular Volume 82.0 fL (78.0-98.0); Platelet Count 118 10x3/uL (130-400); Red Blood Cell (RBC) Count 4.67 mill/uL (4.20-5.40); White Blood Cell (WBC) Count 13.05 10x3/uL (4.8-10.8)
[2025-05-05 07:42] LABS: ALT (SGPT) 32 U/L (Less than 34); AST (SGOT) 54 U/L (11-34); Albumin 2.3 g/dL (3.1-4.5); Alkaline Phosphatase 211 U/L (40-110); Anion Gap 13 mmol/L (10-20); BUN (Urea Nitrogen) 23 mg/dL (9.8-20.1); Bilirubin, Total 0.5 mg/dL (0.3-1.2); Calc. Creatinine Clearance 55 mL/min (70-130); Calcium 9.2 mg/dL (7.8-10.44); Carbon Dioxide 22 mmol/L (22-29); Chloride 108 mmol/L (98-107); Globulin 3.9 g/dL (2.4-3.5); Glucose 208 mg/dL (70-105); Potassium 4.7 mmol/L (3.5-5.1); Sodium 138 mmol/L (136-145)
[2025-05-05] MEDS: Gabapentin 300 MG CAP PO SCH ×2 (10:28→15:45)
[2025-05-05 21:29] VITALS: BP 164/89
[2025-05-06] MEDS: Acetaminophen 325 MG TAB PO PRN (08:32)
[2025-05-06] MEDS: Acetaminophen/Codeine 30-300mg Tablet PO SCH (14:30)
[2025-05-06 16:07] VITALS: TEMP 97.8
== END 2025-05-06 16:42 | disposition home or self-care (01) | DRG 551 ==
LOC: ERS 09:25 → ERHOLD 14:52 → OBSVTOIN 19:13 → CCU 20:56 → 2SE 05-03 21:13 → IMCU/EMU 05-04 17:16
PROVIDERS: ADMIT Internal Medicine; ATTEND Internal Medicine
DX: M48.02 Spinal stenosis, cervical region (principal); G93.41 Metabolic encephalopathy; J96.01 Acute respiratory failure with hypoxia; I13.0 Hypertensive heart and chronic kidney disease with heart failure and stage 1 through stage 4 chronic kidney disease, or unspecified chronic kidney disease; I50.32 Chronic diastolic (congestive) heart failure; E87.1 Hypo-osmolality and hyponatremia; M50.221 Other cervical disc displacement at C4-C5 level; R27.0 Ataxia, unspecified; T40.2X1A Poisoning by other opioids, accidental (unintentional), initial encounter; I95.9 Hypotension, unspecified; D63.1 Anemia in chronic kidney disease; Z86.73 Personal history of transient ischemic attack (TIA), and cerebral infarction without residual deficits; J44.9 Chronic obstructive pulmonary disease, unspecified; F39 Unspecified mood [affective] disorder; Z90.49 Acquired absence of other specified parts of digestive tract; F41.9 Anxiety disorder, unspecified; F32.A Depression, unspecified; Z98.890 Other specified postprocedural states; F17.290 Nicotine dependence, other tobacco product, uncomplicated; E11.65 Type 2 diabetes mellitus with hyperglycemia; N18.30 Chronic kidney disease, stage 3 unspecified; G89.4 Chronic pain syndrome; E78.5 Hyperlipidemia, unspecified; Z91.148 Patient's other noncompliance with medication regimen for other reason; E11.22 Type 2 diabetes mellitus with diabetic chronic kidney disease
CPT/HCPCS: 36415; 36416; 36600; 70450; 70551; 71045; 71260; 72125; 72141; 74177; 80048; 80053; 80061; 80306; 81001; 82010; 82140; 82805; 83036; 83605; 83690; 83735; 83880; 84100; 84484; 85025; 93005; 94760; 96361; 96365; 96366; 96375; G0378; J0360; J1650; J1815; J2270; J2310; J2405; J2919; J3480; Q9967